=== PATIENT | male | born 1935 | race Caucasian/White ===

== ENCOUNTER → 2016-07-12 | Outpatient (CLI) | payer MEDICARE ==
[~2016-07-12] MED LIST: ALPR.5 PO; CALC625 PO; CALTTAB5 PO; COLA100C PO; FISH120014 PO; LORTA5 PO; METF-324 PO; METF500T PO; TAB-TAB PO; VESI10TA PO; VESI10TA4 PO; VITA20002 PO
[2016-07-12 17:04] LABS: HEMOGLOBIN A1a 1.2 %; HEMOGLOBIN A1b 1.7 %; HEMOGLOBIN Ao 84.3 %; HEMOGLOBIN LA1C 2.5 %; HEMOGLOBIN P3 3.8 %
== END ==
LOC: PLAB 13:48
PROVIDERS: ATTEND Family Medicine
DX: E11.9 Type 2 diabetes mellitus without complications (principal); E53.8 Deficiency of other specified B group vitamins
CPT/HCPCS: 36415; 82607; 83036

== ENCOUNTER 2016-07-27 12:02 | Emergency (ER) | payer MEDICARE ==
[~2016-07-27] VITALS: Ht 175.3 cm; Wt 77.0 kg
[~2016-07-27 12:02] MED LIST changes: -ALPR.5 PO; -METF500T PO; -VESI10TA PO
[2016-07-27 12:33] VITALS: BP 159/90; PULSE 88; RESP 17; TEMP 97.1; O2SAT 93
[2016-07-27] MEDS ORDERED: ALPR.5 PO (12:53)
[2016-07-27] MEDS ORDERED: VESI10TA PO (12:53)
[2016-07-27] MEDS ORDERED: METF500T PO (12:53)
--- NOTE | 2016-07-27 13:25 | RADHPO ---
EXAM DATE/TIME: 07/27/2016 12:53 [place] COMPARISON: No previous studies available for comparison. INDICATIONS : Trauma. Fell and hit forehead. Forehead lacerations. RADIATION DOSE: 62.43 CTDIvol (mGy) MEDICAL HISTORY : Diabetes mellitus type 2. Carcinoma, prostate. SURGICAL HISTORY : Cholecystectomy. ENCOUNTER: Initial ACUITY: 1 day PAIN SCALE: 0/10 LOCATION: frontal TECHNIQUE: Multiple contiguous axial images were obtained of the head. Using automated exposure control and adj ustment of the mA and/or kV according to patient size, radiation dose was kept as low as reasonably a chievable to obtain optimal diagnostic quality images. FINDINGS: CEREBRUM: The ventricles are normal for age. Age-appropriate atrophy No evidence of midline shift, mass lesion, hemorrhage or acute infarction. No extra-axial fluid collections are seen. POSTERIOR FOSSA: The cerebellum and brainstem are intact. The 4th ventricle is midline. The cerebellopontine angle i s unremarkable. EXTRACRANIAL: The visualized portion of the orbits is intact. SKULL: The calvaria is intact. No evidence of skull fracture. Facial laceration abrasion over fourth head r egion CONCLUSION: Intact calvarium and normal intracranially for age with no acute problem. Frontal superficial lacerat ion abrasion soft tissues Jeremy Murphy MD on July 27, 2016 at 13:22 Board Certified Radiologist. This report was verified electronically.
--- NOTE | 2016-07-27 13:26 | PD ---
HPI Chief Complaint: Head Injury Time Seen by Provider: 13:23 Travel History International Travel<30 days: No Contact w/Intl Traveler<30days: No Traveled to known affect area: No History of Present Illness HPI 80-year-old male presents to the emergency room for evaluation of 2 head lacerations after trip and fall last night. Patient tripped while trying to get into bed itself reports striking his head on the cabinet. He fell to the ground but was able to get up immediately afterwards. Denies any other extremity or hip pain. His daughter applied a dressing to get the wound to stop bleeding and helped back in bed to sleep. When he woke up this morning, she realized how deep the lacerations were and thought he needed stitches. He denies loss of consciousness, altered mental status, confusion, visual changes, nausea, vomiting, and headache. Patient did have a mild headache this morning for which he received 400 mg ibuprofen. Last tetanus was likely within 5 days. He is not on blood thinners. PFSH Past Medical History Cancer: Yes (PROSTATE) Cardiovascular Problems: No Diabetes: Yes Patient Takes Glucophage: Yes Endocrine: No Gastrointestinal Disorders: Yes (reflux) Genitourinary: Yes (hx of prostate cancer) Hepatitis: No Hiatal Hernia: No Immune Disorder: No Musculoskeletal: No Neurologic: No Psychiatric: No Reproductive: No Respiratory: Yes (poss pneumonia at one time) Thyroid Disease: No Tetanus Vaccination: > 5 Years Influenza Vaccination: Yes Past Surgical History Abdominal Surgery: Yes (GALLBLADDER REMOVED) AICD: No Joint Replacement: No Pacemaker: No Other Surgery: Yes (COLON RESECTION) Social History Alcohol Use: Yes (~4 DRINKS DAILY) Tobacco Use: No Substance Use: No Allergies-Medications (Allergen,Severity, Reaction): Coded Allergies: Lisinopril (Verified Adverse Reaction, Severe, swelling to mouth, 07/27/16) Reported Meds & Prescriptions Reported Meds & Active Scripts Active Reported Xanax (Alprazolam) 0.5 Mg Tab 0.5 Mg PO HS PRN Vesicare (Solifenacin) 10 Mg Tab 10 Mg PO DAILY Metformin (Metformin HCl) 500 Mg Tab 500 Mg PO DAILY With a meal Review of Systems Except as stated in HPI: all other systems reviewed are Neg Physical Exam Narrative GENERAL: Well-nourished, well-developed male in no acute distress. Afebrile. Ambulatory. SKIN: Warm and dry. HEAD: Normocephalic. EYES: No scleral icterus. No injection or drainage. EARS: Bilateral pinnae and external canals appear within normal limits. Bilateral tympanic membranes without erythema, dullness or perforation. No hemotympanum. NECK: Supple, trachea midline. No JVD or lymphadenopathy. CARDIOVASCULAR: Regular rate and rhythm without murmurs, gallops, or rubs. RESPIRATORY: Breath sounds equal bilaterally. No accessory muscle use. NEUROLOGICAL: Awake and alert. Cranial nerves II through XII intact. Motor and sensory grossly within normal limits. Five out of 5 muscle strength in all muscle groups. Normal speech. Data Data Last Documented VS Vital Signs Date Time Temp Pulse Resp B/P Pulse Ox O2 Delivery O2 Flow Rate FiO2 07/27/16 12:52 Room Air 07/27/16 12:33 97.1 88 17 159/[address] Brain W/O Iv Contrast(Rout) (07/27/16 ) Lidocai-Epi 1%-1:100,000 Inj (Xylocaine- (07/27/16 13:45) MDM Medical Decision Making Medical Screen Exam Complete: Yes Emergency Medical Condition: Yes Medical Record Reviewed: Yes Differential Diagnosis Laceration versus concussion versus intracranial hemorrhage Narrative Course 80-year-old female presents to the emergency room for evaluation of lacerations to forehead after trip and fall last night. Patient tripped and struck his head against the cabinet. There is no loss of consciousness or syncope. No focal neurological deficits. He is not on blood thinners. Denies headache, retrograde amnesia, nausea, and vomiting. CT is negative. Physical exam reveals 2 3 cm lacerations, one vertical and one horizontal on the mid forehead. Hemostasis controlled. Wounds were repaired, see procedure note for details. Patient discharged with wound care instructions and told to follow up with a primary care physician or return for worsening symptoms. He understands and agrees to plan. Procedures Procedure Narrative LACERATION LOCATION: Forehead; vertical LENGTH: 3 cm NUMBER OF STITCHES/ALEJANDRA: 6 simple interrupted REPAIR: The area of the laceration was prepped with Betadine and sterilely draped. The laceration was infiltrated with 1% lidocaine with epinephrine. The wound was copiously irrigated and explored without evidence of foreign body , tendon injury or neurovascular injury. The wound was closed using 6-0 Prolene. This was a single layer repair. A sterile dressing was applied. The patient was advised to keep the dressing clean and dry. Patient tolerated the procedure well. LACERATION LOCATION: Forehead; horizontal LENGTH: 3 cm NUMBER OF STITCHES/ALEJANDRA: 5 simple interrupted REPAIR: The area of the laceration was prepped with Betadine and sterilely draped. The laceration was infiltrated with 1% lidocaine with epinephrine. The wound was copiously irrigated and explored without evidence of foreign body , tendon injury or neurovascular injury. The wound was closed using 6-0 Prolene. This was a single layer repair. A sterile dressing was applied. The patient was advised to keep the dressing clean and dry. Patient tolerated the procedure well. Diagnosis Primary Impression: Laceration of forehead without complication Qualified Code: S01.81XA - Laceration of forehead without complication, initial encounter Referrals: Primary Care Physician Patient Instructions: General Instructions, Laceration (ED) Additional Instructions: Rest and drink plenty of fluids. Keep wound clean and dry. Wash daily with soap and water. Apply triple antibiotic ointment daily. Sutures out in 5-7 days. Take Tylenol as directed, as needed for pain. Follow-up with a primary care physician. Return to the emergency room for worsening symptoms. Disposition: 01 DISCHARGE HOME Condition: Stable Tasha Knapp Jul 27, 2016 13:26
[2016-07-27] MEDS ORDERED: LIDOCAINE 1%/EPINEPHrine 1:100,000 SOLN 20 ML VIAL INFIL ONE (13:30)
[2016-07-27] MEDS ORDERED: LIDOCAINE 1%/EPINEPHrine 1:100,000 SOLN 30 ML VIAL INFIL ONE (13:45)
== END 2016-07-27 14:35 | disposition home or self-care (01) ==
LOC: PHEFT 12:02
DX: S01.81XA Laceration without foreign body of other part of head, initial encounter (principal); W01.190A Fall on same level from slipping, tripping and stumbling with subsequent striking against furniture, initial encounter
CPT/HCPCS: 12014; 70450

== ENCOUNTER → 2016-10-03 | Outpatient (CLI) | payer MEDICARE ==
[~2016-10-03] MED LIST changes: +ALPR.5 PO; -CALC625 PO; -CALTTAB5 PO; -COLA100C PO; -FISH120014 PO; -LORTA5 PO; -METF-324 PO; +METF500T PO; -TAB-TAB PO; +VESI10TA PO; -VESI10TA4 PO; -VITA20002 PO
[2016-10-03 13:30] LABS: AUTOMATED NEUTROPHIL # 2.1 TH/MM3 (1.8-7.7); BASOPHIL % 0.5 % (0.0-2.0); EOSINOPHIL # 0.2 TH/MM3 (0-0.4); EOSINOPHIL % 4.1 % (0.0-4.0); HEMATOCRIT 41.9 % (39.0-51.0); HEMO FLAGS DIFF FINAL; LYMPH % 34.2 % (9.0-44.0); LYMPHOCYTE # 1.5 TH/MM3 (1.0-4.8); MEAN CELL VOLUME 96.2 FL (80.0-100.0); MEAN CORPUSCULAR HEMOGLOBIN 32.7 PG (27.0-34.0); MONO % 13.5 % (0.0-8.0); NEUT % 47.7 % (16.0-70.0); PLATELET COUNT 180 TH/MM3 (150-450); RED BLOOD COUNT 4.36 MIL/MM3 (4.50-5.90); RED CELL DISTRIBUTION WIDTH 13.4 % (11.6-17.2); WHITE BLOOD COUNT 4.3 TH/MM3 (4.0-11.0)
[2016-10-03 14:03] LABS: ANION GAP 9 MEQ/L (5-15); AST (GOT) 19 U/L (15-37); BICARBONATE 27.1 MEQ/L (21.0-32.0); BLOOD UREA NITROGEN 8 MG/DL (7-18); CHLORIDE 103 MEQ/L (98-107); POTASSIUM 3.9 MEQ/L (3.5-5.1); SODIUM (NA) 139 MEQ/L (136-145)
[2016-10-03 14:32] LABS: ALKALINE PHOSPHATASE 57 U/L (45-117); ALT (GPT) 16 U/L (12-78); GLOMERULAR FILTRATION RATE 69 ML/MIN (>89); TOTAL BILIRUBIN ADULT 0.6 MG/DL (0.2-1.0)
[2016-10-03 17:01] LABS: HEMOGLOBIN A1b 1.7 %; HEMOGLOBIN Ao 84.8 %; HEMOGLOBIN P3 3.7 %
== END ==
LOC: PLAB 09:42
PROVIDERS: ATTEND Urology
DX: E11.9 Type 2 diabetes mellitus without complications (principal); E53.8 Deficiency of other specified B group vitamins; Z85.46 Personal history of malignant neoplasm of prostate
CPT/HCPCS: 36415; 80053; 82607; 82746; 83036; 83921; 84153; 85025

== ENCOUNTER → 2017-04-18 | Outpatient (CLI) | payer MEDICARE ==
[2017-04-18 13:59] LABS: BASOPHIL % 0.4 % (0.0-2.0); EOSINOPHIL # 0.2 TH/MM3 (0-0.4); EOSINOPHIL % 3.7 % (0.0-4.0); HEMATOCRIT 43.4 % (39.0-51.0); HEMO FLAGS DIFF FINAL; LYMPH % 36.2 % (9.0-44.0); LYMPHOCYTE # 1.5 TH/MM3 (1.0-4.8); MEAN CELL VOLUME 101.5 FL (80.0-100.0); MEAN CORPUSCULAR HEMOGLOBIN 33.5 PG (27.0-34.0); MONO % 11.8 % (0.0-8.0); NEUT % 47.9 % (16.0-70.0); PLATELET COUNT 117 TH/MM3 (150-450); RED BLOOD COUNT 4.28 MIL/MM3 (4.50-5.90); RED CELL DISTRIBUTION WIDTH 13.9 % (11.6-17.2); WHITE BLOOD COUNT 4.2 TH/MM3 (4.0-11.0)
[2017-04-18 14:31] LABS: ANION GAP 7 MEQ/L (5-15); AST (GOT) 30 U/L (15-37); BICARBONATE 27.8 MEQ/L (21.0-32.0); BLOOD UREA NITROGEN 11 MG/DL (7-18); CHLORIDE 106 MEQ/L (98-107); GLOMERULAR FILTRATION RATE 65 ML/MIN (>89); POTASSIUM 3.6 MEQ/L (3.5-5.1); SODIUM (NA) 141 MEQ/L (136-145)
[2017-04-18 15:01] LABS: ALKALINE PHOSPHATASE 64 U/L (45-117); ALT (GPT) 22 U/L (12-78); GLUCOSE,FASTING 86 MG/DL (74-99); HDL CHOLESTEROL 78.9 MG/DL (40.0-60.0); LDL CHOLESTEROL 50 MG/DL (0-99); TOTAL BILIRUBIN ADULT 0.6 MG/DL (0.2-1.0)
[2017-04-18 16:52] LABS: HEMOGLOBIN A1a 1.1 %; HEMOGLOBIN A1b 1.7 %; HEMOGLOBIN Ao 84.5 %; HEMOGLOBIN F 0.5 %; HEMOGLOBIN LA1C 2.1 %; HEMOGLOBIN P3 3.7 %
== END ==
LOC: PLAB 09:27
PROVIDERS: ATTEND Family Medicine
DX: R53.1 Weakness (principal); E11.9 Type 2 diabetes mellitus without complications; I10 Essential (primary) hypertension; R53.83 Other fatigue; E78.2 Mixed hyperlipidemia; Z85.46 Personal history of malignant neoplasm of prostate
CPT/HCPCS: 36415; 80053; 80061; 82607; 83036; 84153; 85025

== ENCOUNTER → 2017-08-13 | Outpatient (CLI) | payer MEDICARE ==
[~2017-08-13] MED LIST changes: -VESI10TA PO; +VESI10TA2 PO
[2017-08-13 17:25] LABS: AUTOMATED NEUTROPHIL # 3.4 TH/MM3 (1.8-7.7); BASOPHIL % 0.5 % (0.0-2.0); EOSINOPHIL # 0.2 TH/MM3 (0-0.4); EOSINOPHIL % 3.5 % (0.0-4.0); HEMATOCRIT 43.9 % (39.0-51.0); HEMOGLOBIN 15.4 GM/DL (13.0-17.0); LYMPH % 25.6 % (9.0-44.0); LYMPHOCYTE # 1.5 TH/MM3 (1.0-4.8); MEAN CELL VOLUME 100.2 FL (80.0-100.0); MEAN CORPUSCULAR HEMOGLOBIN 35.1 PG (27.0-34.0); MONO % 11.4 % (0.0-8.0); MONOCYTE # 0.6 TH/MM3 (0-0.9); PLATELET COUNT 168 TH/MM3 (150-450); RED BLOOD COUNT 4.38 MIL/MM3 (4.50-5.90); RED CELL DISTRIBUTION WIDTH 13.8 % (11.6-17.2); WHITE BLOOD COUNT 5.7 TH/MM3 (4.0-11.0)
[2017-08-13 17:45] LABS: ALBUMIN 3.7 GM/DL (3.4-5.0); AST (GOT) 21 U/L (15-37); BICARBONATE 28.6 MEQ/L (21.0-32.0); BLOOD UREA NITROGEN 14 MG/DL (7-18); CALCIUM 9.3 MG/DL (8.5-10.1); CHLORIDE 101 MEQ/L (98-107); CREATININE 1.14 MG/DL (0.60-1.30); GLOMERULAR FILTRATION RATE 62 ML/MIN (>89); GLUCOSE,RANDOM 127 MG/DL (74-106); SODIUM (NA) 138 MEQ/L (136-145)
[2017-08-13 17:46] LABS: ALT (GPT) 16 U/L (12-78)
[2017-08-13 17:48] LABS: ALKALINE PHOSPHATASE 68 U/L (45-117); TOTAL BILIRUBIN ADULT 0.6 MG/DL (0.2-1.0); TOTAL PROTEIN 7.4 GM/DL (6.4-8.2)
[2017-08-13 20:08] LABS: HEMOGLOBIN A1C 5.9 % (4.3-6.0)
== END ==
LOC: PLAB 15:46
PROVIDERS: ATTEND Family Medicine
DX: R09.02 Hypoxemia (principal); E11.9 Type 2 diabetes mellitus without complications
CPT/HCPCS: 36415; 80053; 83036; 85025

== ENCOUNTER → 2017-09-19 | Outpatient (CLI) | payer MEDICARE ==
[2017-09-19 18:43] LABS: RHEUMATOID FACTOR SCREEN NEGATIVE (NEGATIVE)
== END ==
LOC: PLAB 12:56
PROVIDERS: ATTEND Family Medicine
DX: R09.02 Hypoxemia (principal)
CPT/HCPCS: 36415; 85652; 86038; 86140; 86430

== ENCOUNTER → 2017-10-25 | Outpatient (CLI) | payer MEDICARE | LOC: PLAB 11:05 | PROVIDERS: ATTEND Urology | DX: Z85.46 Personal history of malignant neoplasm of prostate (principal) | CPT/HCPCS: 36415; 84153 ==

== ENCOUNTER → 2017-11-14 | Outpatient (CLI) | DX: E11.9 Type 2 diabetes mellitus without complications (principal); K43.2 Incisional hernia without obstruction or gangrene; E78.2 Mixed hyperlipidemia; I10 Essential (primary) hypertension; R53.83 Other fatigue; E53.8 Deficiency of other specified B group vitamins ==

== ENCOUNTER 2018-05-22 14:49 | Inpatient (IN) ==
--- NOTE | 2018-05-22 15:33 | ED ---
HPI General Chief Complaint: Syncope Stated Complaint: Syncope Time Seen by Provider: 05/22/18 15:04 Source: patient and family Mode of arrival: EMS Limitations: no limitations History of Present Illness HPI narrative: Patient is an 82-year-old male presenting to the emergency department for evaluation after a witnessed syncopal episode. states that he was attempting to walk to the bathroom, he went to sit down on the toilet bowl and slumped over per her report. There was no head injury, she states that he was not responding for several seconds. Patient occasionally requires the use of a walker, approximately 10 days ago he had a fall that resulted in an L1 compression fracture. This was just discovered yesterday after an x-ray was performed by his primary doctor. Patient's states that he wears oxygen at night and that he recently qualified for oxygen during the day but he does not wear it. Patient reports feeling dizzy prior to the episode. He denied any chest pain, shortness of breath, headaches, visual changes. Symptom onset was sudden, symptoms resolved prior to presenting to the emergency department. MD complaint: Reports collapsed Onset (ago): minute(s) -: second(s) Prodromal symptoms: Reports lightheaded Witnessed: yes - by other Context: Reports during exertion and standing up Injuries sustained associated with event: Reports none Current symptoms: Reports none Treatments prior to arrival: Reports none Related Data Home Medications Medication Instructions Recorded Confirmed alprazolam 0.5 mg PO HS 05/22/18 05/22/18 metformin 500 mg PO DAILY 05/22/18 05/22/18 mirabegron [Myrbetriq] 25 mg PO DAILY 05/22/18 05/22/18 Allergies Allergy/AdvReac Type Severity Reaction Status Date / Time lisinopril AdvReac Severe swelling Verified 05/22/18 15:07 to mouth Review of Systems ROS: all other systems reviewed are negative [facility] Medical History Medical History Compression fracture of L1 lumbar vertebra (Acute) Diabetes (Acute) Insomnia (Acute) Surgical History Surgical History History of cholecystectomy (Acute) Social History Social History Substance History: No History of Abuse Smoking Status: Former smoker How Often Do You Have a Drink Containing Alcohol: 2 to 3 times a week Recent Travel in [facility] within the Last 8 Weeks: No Recent Out of Country Travel within the Last 8 Weeks: No Immunization History Tetanus Immunization: Unsure Exam Narrative Exam Narrative: GENERAL: Well-developed, well-nourished, alert elderly male. Presenting in no acute distress. SKIN: Focused skin assessment warm/dry. HEAD: Atraumatic. Normocephalic. EYES: Pupils equal and round. No scleral icterus. No injection or drainage. ENT: No nasal bleeding or discharge. Mucous membranes pink and moist. NECK: Trachea midline. No JVD. CARDIOVASCULAR: Regular rate and rhythm. No murmur appreciated. RESPIRATORY: No accessory muscle use. Clear to auscultation. Breath sounds equal bilaterally. GASTROINTESTINAL: Abdomen soft, non-tender, nondistended. Hepatic and splenic margins not palpable. MUSCULOSKELETAL: No obvious deformities. No clubbing. No cyanosis. No edema. NEUROLOGICAL: Awake and alert. No obvious cranial nerve deficits. Motor grossly within normal limits. Normal speech. PSYCHIATRIC: Appropriate mood and affect; insight and judgment normal. Course Initial Documented Vital Signs Pulse Oximetry 89 L 05/22/18 15:02 Last Documented Vital Signs Temperature 97.4 F L 05/22/18 15:09 Pulse Rate 61 05/22/18 17:07 Respiratory Rate 18 05/22/18 17:15 Blood Pressure 162/92 H 05/22/18 17:15 Pulse Oximetry 96 05/22/18 17:15 Medical Decision Making GRISELDA Attestation GRISELDA supervised visit: Yes Attestation: I, Dr. Young, have reviewed the advance practice practitioner's documentation and am in agreement, met with the patient face to face, made the diagnosis, and the medical decision making was done by me. *My assessment and Findings: Patient is an 82-year-old male who presents to the emergency room with his for evaluation of a syncopal episode. Patient reports that he was recently diagnosed with an L1 compression fracture after he fell 1 week ago. Patient reports that with his pain, he has not been able to eat like his normal self, he has been trying to drink Ensure shakes. Patient reports that today, he tried to use the bathroom, reports that he needed to the toilet and passed out for a few seconds. Patient did not have a bowel movement, did not have any passage of urine prior to this syncopal episode. who is at bedside reported that this lasted for only a few minutes and he was able to come to. Patient at this time denies any headache or dizziness, denies any chest pain or shortness of breath. A syncope workup was initiated. MDM Narrative Medical decision making narrative: Patient presented with his for evaluation after syncopal episode. Patient's vital signs are stable, his O2 sat on room air is 91-92%, when EMS arrived on scene patient's pulse ox was 88% . Orthostatic vital signs are negative. Labs and imaging ordered and pending. Initial EKG reviewed by my attending physician. Labs reviewed, sodium 123, this is acute when compared to prior less than a month ago which was 135. CT the brain shows no acute findings. Chest x-ray with no acute disease Patient was given 1 L of IV fluids, discussed with Dr. Howell who accepted admission. Admit orders placed. Patient advised on clinical findings and plan of care. Medical Screen Exam Complete: Yes Emergency Medical Condition: Yes Differential Diagnosis Differential Diagnosis: Metabolic abnormality versus hypoxia versus arrhythmia versus vasovagal versus other Medical Records Medical records reviewed: Yes I reviewed the patient's medical records. Lab Data Lab results reviewed: Yes I reviewed the patient's lab results. Result diagrams: 05/22/18 15:20 05/22/18 15:20 Lab Results 05/22/18 05/22/18 Range/Units 15:20 15:20 WBC 6.9 (4.0-11.0) th/mm3 RBC 4.20 L (4.50-5.90) mil/mm3 Hgb 14.7 (13.0-17.0) gm/dL Hct 41.9 (39.0-51.0) % MCV 99.8 (80.0-100.0) fL MCH 35.0 H (27.0-34.0) pg MCHC 35.1 (32.0-36.0) % RDW 13.4 (11.6-17.2) % Plt Count 191 (150-450) th/mm3 MPV 9.2 (7.0-11.0) fL Neut % (Auto) 63.1 (16.0-70.0) % Lymph % (Auto) 19.1 (9.0-44.0) % [place] % (Auto) 13.9 H (0.0-8.0) % Eos % (Auto) 3.5 (0.0-4.0) % Baso % (Auto) 0.4 (0.0-2.0) % Neut # (Auto) 4.4 (1.8-7.7) th/mm3 Lymph # (Auto) 1.3 (1.0-4.8) th/mm3 [place] # (Auto) 1.0 H (0.0-0.9) th/mm3 Eos # (Auto) 0.2 (0.0-0.4) th/mm3 Baso # (Auto) 0.0 (0.0-0.2) th/mm3 WBC Differential . Differential Comment Auto diff final Sodium 123 L* (136-145) meq/L Potassium 4.1 (3.5-5.1) meq/L Chloride 89 L (98-107) meq/L Carbon Dioxide 24.2 (21.0-32.0) meq/L Anion Gap 10 (5-15) meq/L BUN 15 (7-18) mg/dL Creatinine 1.18 (0.60-1.30) mg/dL Estimated GFR 59 L (>89) mL/min Random Glucose 127 H (74-106) mg/dL Calcium 9.0 (8.5-10.1) mg/dL Total Bilirubin 0.6 (0.2-1.0) mg/dL AST 35 (15-37) U/L ALT 15 (12-78) U/L Alkaline Phosphatase 63 (45-117) U/L Troponin I Less than 0.02 L (0.02-0.05) ng/mL Total Protein 6.8 (6.4-8.2) g/dL Albumin 3.3 L (3.4-5.0) g/dL Imaging Data Radiologist's impression: Head CT 05/22/18 15:14 CONCLUSION: 1. No acute intracranial abnormality. 2. Atrophy and chronic white matter changes are again noted. . Chest X-Ray 05/22/18 15:15 CONCLUSION: Hyperexpanded and scarred lungs similar to before. No acute infiltrate seen. Discharge Plan Discharge Disposition Patient Disposition: 30 Still Patient Discharge Condition Condition: Fair Discharge Details Diagnosis: Syncope and collapse, Hyponatremia Physicians Team ED Provider: Patty Young ED Midlevel Provider: Paula Muniz Primary Care Provider: Winnie Moulton Rxs /Orders / Referrals /Forms Prescriptions: No Action metformin 500 mg Tablet 500 mg PO DAILY RF: 0 alprazolam 0.5 mg Tablet 0.5 mg PO HS RF: 0 mirabegron [Myrbetriq] 25 mg Tablet Extended Release 24 Hr 25 mg PO DAILY RF: 0 Status ED Status: Admitted Patient
--- NOTE | 2018-05-22 15:48 | XR ---
EXAM DATE: 05/22/2018 3:33 PM EST AGE/SEX: 82 years / Male INDICATIONS: Dyspnea. CLINICAL DATA: This is the patient's initial encounter. Patient reports that signs and symptoms have been present for 1 day and indicates a pain score of 0/10. MEDICAL/SURGICAL HISTORY: . Diabetes mellitus type 2. Carcinoma, prostate. . Cholecystectomy. COMPARISON: [facility], CT CHEST W/O CONTRAST, 09/25/2017. . FINDINGS: Hyperexpanded lungs with basilar predominant scarring again noted, generally similar to the prior CT. No definite acute infiltrate seen. No large effusion. No pneumothorax. Heart size stable, upper limits of normal. Tortuous and atherosclerotic aorta again seen. CONCLUSION: Hyperexpanded and scarred lungs similar to before. No acute infiltrate seen. Electronically signed by: Joaquin Storey MD 05/22/2018 3:47 PM EST
[2018-05-22 15:51] LABS: Baso % (Auto) 0.4 % (0.0-2.0); Eos # (Auto) 0.2 th/mm3 (0.0-0.4); Eos % (Auto) 3.5 % (0.0-4.0); Hematocrit 41.9 % (39.0-51.0); Hemoglobin 14.7 gm/dL (13.0-17.0); Lymph # (Auto) 1.3 th/mm3 (1.0-4.8); Lymph % (Auto) 19.1 % (9.0-44.0); Mean Corpuscular HGB Conc 35.1 % (32.0-36.0); Mean Corpuscular Volume 99.8 fL (80.0-100.0); Mean Platelet Volume 9.2 fL (7.0-11.0); Mono % (Auto) 13.9 % (0.0-8.0); Neut # (Auto) 4.4 th/mm3 (1.8-7.7); Neut % (Auto) 63.1 % (16.0-70.0); Platelet Count 191 th/mm3 (150-450); Red Cell Distribution Width 13.4 % (11.6-17.2); White Blood Count 6.9 th/mm3 (4.0-11.0)
--- NOTE | 2018-05-22 16:36 | CT ---
EXAM DATE: 05/22/2018 4:29 PM EST AGE/SEX: 82 years / Male INDICATIONS: Syncope today. CLINICAL DATA: This is the patient's initial encounter. Patient reports that signs and symptoms have been present for 1 day and indicates a pain score of 0/10. MEDICAL/SURGICAL HISTORY: Diabetes. Cholecystectomy. RADIATION DOSE: 56.35 CTDI (mGy) COMPARISON: [facility], CT BRAIN W/O CONTRAST, 07/27/2016. . TECHNIQUE: CT of the head without contrast. Using automated exposure control and adjustment of the mA and/or kV according to patient size, radiation dose was kept as low as reasonably achievable to ob tain optimal diagnostic quality images. DICOM format image data is available electronically for revi ew and comparison. FINDINGS: Cerebrum: The ventricles are normal for age. No evidence of midline shift, mass lesion, hemorrhage or acute infarction. No extraaxial fluid collections are seen. Atrophy and chronic low-attenuation i n the periventricular white matter again noted. Posterior Fossa: The cerebellum and brainstem are intact. The 4th ventricle is midline. The cerebe llopontine angle is unremarkable. Extracranial: The visualized portion of the orbits is intact. Skull: The calvaria is intact. No evidence of skull fracture. CONCLUSION: 1. No acute intracranial abnormality. 2. Atrophy and chronic white matter changes are again noted. . Electronically signed by: Joaquin Storey MD 05/22/2018 4:34 PM EST
[2018-05-22 17:06] LABS: Alanine Aminotransferase 15 U/L (12-78); Albumin 3.3 g/dL (3.4-5.0); Alkaline Phosphatase 63 U/L (45-117); Anion Gap 10 meq/L (5-15); Aspartate Aminotransferase 35 U/L (15-37); Blood Urea Nitrogen 15 mg/dL (7-18); Carbon Dioxide 24.2 meq/L (21.0-32.0); Chloride 89 meq/L (98-107); Glomerular Filtration Rate 59 mL/min (>89); Glucose,Random 127 mg/dL (74-106); Total Protein 6.8 g/dL (6.4-8.2)
[2018-05-22 17:07] LABS: Potassium 4.1 meq/L (3.5-5.1)
[2018-05-22 17:09] LABS: Sodium 123 meq/L (136-145)
[2018-05-22] MEDS ORDERED: Sod Chloride 0.9% Inj 1,000 ML IV.SIG SCH (17:15)
[2018-05-22] MEDS ORDERED: Bisacodyl 10 MG Supp RECTAL PRN (18:04)
[2018-05-22] MEDS ORDERED: Acetaminophen 325 MG Tablet PO PRN (18:04)
--- NOTE | 2018-05-22 18:16 | P.HP ---
History of Present Illness Service: Hospitalist Primary Care Physician: Winnie Moulton MD Chief Complaint: Almost passed out. History of Present Illness: Mr. Keller is an 82 year old male is with a history of prostate cancer and diabetes mellitus with a recent L1 compression fracture who presents to the ED on 05/22/2018 due to an episode of near syncope. Patient went to the toilet and as he sat, he slumped over but did not loose consciousness. Patient's subsequently called EMS and patient was brought to the ED. At the time of this interview, patient is doing much better per his at bedside. He was started on a new BPH medication, Mirabegron. Patient's does report that he has not been eating or drinking well in the recent few days. He does drink alcohol but has reduced alcohol in-take in recent days. No chest pain, shortness of breath, no fever/chills. No changes in bowel or bladder habits. Past medical history: Diabetes mellitus, L1 compression fracture, prostate cancer Past surgical history: Cholecystectomy Social history: Denies using tobacco. Drinks 2-3 drinks of whisky a day Family history: Sister from Lung cancer. Father had Alzheimer's. Inpatient Certification: I certify that the inpatient services were ordered in accordance with Medicare regulations governing the order. This includes certification that hospital inpatient services are reasonable and necessary and in the case of services not specified as inpatient-only under 42 CFR 419.22(n), that they are appropriately provided as inpatient services in accordance to with the 2-midnight benchmark under 43 CFR 412.3(e) Review of Systems All other systems reviewed negative except as stated in [facility] - History History Provided By: Patient, Family Member - Medical History Medical History: Medical History (Last Reviewed 05/22/18 @ 22:23 by Jeff Howell DO) Compression fracture of L1 lumbar vertebra Diabetes Insomnia - Surgical History Surgical History: Surgical History (Last Reviewed 05/22/18 @ 22:23 by Jeff Howell DO) History of cholecystectomy - Tobacco History Smoking Status: Former smoker - Alcohol History How Often Do You Have a Drink Containing Alcohol: 2 to 3 times a week - Substance Use History Substance History: No History of Abuse - Travel History Recent Travel in the [place] Within the Last 8 Weeks: No Recent Travel Out of the Country Within the Last 8 Weeks: No - Immunization History Tetanus Immunization: Unsure Medications and Allergies Active Medications: Active Medications Acetaminophen (Tylenol) 650 mg PO Q4H PRN PRN Reason: Headache, fever, pain 1-4 Al Hydroxide/Mg Hydroxide (Milk Of Magnesia Liq) 30 ml PO Q12H PRN PRN Reason: Mild Constipation Bisacodyl (Dulcolax Supp) 10 mg RECTAL DAILY PRN PRN Reason: SEVERE CONSITIPATION Sodium Chloride (Ns Inj) 1,000 mls @ 100 mls/hr IV.CONT .Q10H CHELE Stop: 05/24/18 18:14 Lactulose (Lactulose Liq) 30 ml PO DAILY PRN PRN Reason: SEVERE CONSITIPATION Ondansetron HCl (Zofran Inj) 4 mg IV.PUSH Q6H PRN PRN Reason: NAUSEA OR VOMITING Sennosides (Senokot) 17.2 mg PO Q12H PRN PRN Reason: Moderate Constipation Allergies Allergy/AdvReac Type Severity Reaction Status Date / Time lisinopril AdvReac Severe swelling Verified 05/22/18 21:52 to mouth Home Medications Medication Instructions Recorded Confirmed Type alprazolam 0.5 mg PO HS 05/22/18 05/22/18 History metformin 500 mg PO DAILY 05/22/18 05/22/18 History mirabegron [Myrbetriq] 25 mg PO DAILY 05/22/18 05/22/18 History Exam Vital signs: Vital Signs 05/22/18 15:02 05/22/18 15:09 05/22/18 17:07 Temperature 97.4 F L Pulse Rate 63 61 Respiratory Rate 16 Blood Pressure 173/91 H Pulse Oximetry 89 L 92 L 05/22/18 17:15 Temperature Pulse Rate Respiratory Rate 18 Blood Pressure 162/92 H Pulse Oximetry 96 Intake & Output 05/21/18 05/22/18 05/22/18 18:59 06:59 18:59 Weight 79.379 kg Narrative: GENERAL: This is a well-nourished, well-developed patient, in no apparent distress. SKIN: No rashes, ecchymoses or lesions. Warm and dry. HEAD: Atraumatic. Normocephalic. No temporal or scalp tenderness. EYES: Pupils equal round and reactive. No injection or drainage. ENT: Nose without bleeding, purulent drainage or septal hematoma. Airway patent. NECK: Trachea midline. No lymphadenopathy. Supple, nontender, no meningeal signs. CARDIOVASCULAR: Regular rate and rhythm without murmurs, gallops, or rubs. No JVD. RESPIRATORY: Clear to auscultation. Breath sounds equal bilaterally. No wheezes , rales, or rhonchi. GASTROINTESTINAL: Abdomen soft, non-tender, nondistended. No guarding. MUSCULOSKELETAL: Extremities without clubbing, cyanosis, or edema. NEUROLOGICAL: Awake and alert. Cranial nerves II through XII intact. No focal neurological deficits. Normal speech. Results - Labs CBC & Chem 7: 05/22/18 15:20 05/22/18 15:20 Labs: Laboratory Results - last 24 hr 05/22/18 05/22/18 15:20 15:20 WBC 6.9 RBC 4.20 L Hgb 14.7 Hct 41.9 MCV 99.8 MCH 35.0 H MCHC 35.1 RDW 13.4 Plt Count 191 MPV 9.2 Neut % (Auto) 63.1 Lymph % (Auto) 19.1 [place] % (Auto) 13.9 H Eos % (Auto) 3.5 Baso % (Auto) 0.4 Neut # (Auto) 4.4 Lymph # (Auto) 1.3 [place] # (Auto) 1.0 H Eos # (Auto) 0.2 Baso # (Auto) 0.0 WBC Differential . Differential Comment Auto diff final Sodium 123 L* Potassium 4.1 Chloride 89 L Carbon Dioxide 24.2 Anion Gap 10 BUN 15 Creatinine 1.18 Estimated GFR 59 L Random Glucose 127 H Calcium 9.0 Total Bilirubin 0.6 AST 35 ALT 15 Alkaline Phosphatase 63 Troponin I Less than 0.02 L Total Protein 6.8 Albumin 3.3 L - Imaging Impressions Head CT 05/22/18 15:14 CONCLUSION: 1. No acute intracranial abnormality. 2. Atrophy and chronic white matter changes are again noted. . Chest X-Ray 05/22/18 15:15 CONCLUSION: Hyperexpanded and scarred lungs similar to before. No acute infiltrate seen. Caprini VTE Risk Assessment Caprini VTE Risk Assessment: No/Low Risk (score <= 1) Caprini Risk Assessment Model: Point Value = 1 Point Value = 2 Point Value = 3 Point Value = 5 Age 41-60 Minor surgery BMI > 25 kg/m2 Swollen legs Varicose veins or History of unexplained or recurrent spontaneous Oral contraceptives or hormone replacement Sepsis (< 1 month) Serious lung disease, including pneumonia (< 1 month) Abnormal pulmonary function Acute myocardial infarction Congestive heart failure (< 1 month) History of inflammatory bowel disease Medical patient at bed rest Age 61-74 Arthroscopic surgery Major open surgery (> 45 min) Laparoscopic surgery (> 45 min) Malignancy Confined to bed (> 72 hours) Immobilizing plaster cast Central venous access Age >= 75 History of VTE Family history of VTE Factor V Leiden Prothrombin [id number] Lupus anticoagulant Anticardiolipin antibodies Elevated serum homocysteine Heparin-induced thrombocytopenia Other congenital or acquired thrombophilia Stroke (< 1 month) Elective arthroplasty Hip, pelvis, or leg fracture Acute spinal cord injury (< 1 month) Prophylaxis Regimen: Total Risk Factor Score Risk Level Prophylaxis Regimen 0-1 Low Early ambulation 2 Moderate Order ONE of the following: *Sequential Compression Device (SCD) *Heparin 5000 units SQ BID 3-4 Higher Order ONE of the following medications: *Heparin 5000 units SQ TID *Enoxaparin/Lovenox 40 mg SQ daily (WT < 150 kg, CrCl > 30 mL/min) *Enoxaparin/Lovenox 30 mg SQ daily (WT < 150 kg, CrCl > 10-29 mL/min) *Enoxaparin/Lovenox 30 mg SQ BID (WT < 150 kg, CrCl > 30 mL/min) AND/OR *Sequential Compression Device (SCD) 5 or more Highest Order ONE of the following medications: *Heparin 5000 units SQ TID (Preferred with Epidurals) *Enoxaparin/Lovenox 40 mg SQ daily (WT < 150 kg, CrCl > 30 mL/min) *Enoxaparin/Lovenox 30 mg SQ daily (WT < 150 kg, CrCl > 10-29 mL/min) *Enoxaparin/Lovenox 30 mg SQ BID (WT < 150 kg, CrCl > 30 mL/min) AND *Sequential Compression Device (SCD) Assessment and Plan - Plan Mr. Keller is a pleasant 82 year old male with a history of prostate cancer, recent L1 fracture, diabetes mellitus who presented to the ED after an episode of near syncope. Near syncope -Possibly due to hypovolemia which is due to poor oral intake. -Will keep patient on NS. -Will check Orthostatics. Hyponatremia - Na 123 on admission. About a month ago it was 135. -Likely due to hypovolemia -Continue NS infusion. Check Urine Osm and Urine sodium. -Will also order AM cortisol and AM labs. Check Sodium at 10pm Diabetes mellitus -Glucose 127. Will keep him on sliding scale insulin. -If needed, consider Levemir. Goal BG 140-180. BPH - Mirabegron was started about a week ago. I don't think this is the reason for hyponatremia. Recent L1 compression fracture - Probably conservative management, PT. Full code. SCDs.
[2018-05-22] MEDS: Sod Chloride 0.9% Inj 1,000 ML IV.CONT SCH (18:37)
[2018-05-22 21:36] LABS: Bilirubin,Urine Negative (Negative); Clarity,Urine Clear (Clear); Color,Urine Yellow (Yellw/Straw); Glucose,Urine (UA) Negative (Negative); Hyaline Casts,Urine 3 /lpf (0-3); Leukocyte Esterase,Urine Negative (Negative); Mucus,Urine Few /lpf (Occasional); Nitrite,Urine Negative (Negative); Squamous Epithelial Cell,Urine <1 /hpf (0-5)
[2018-05-22] MEDS ORDERED: Dextrose 50% in Water 50 ML Vial IV.PUSH PRN (21:44)
[2018-05-23 00:16] LABS: Calcium 8.6 mg/dL (8.5-10.1); Carbon Dioxide 25.7 meq/L (21.0-32.0); Potassium 4.3 meq/L (3.5-5.1)
[2018-05-23] MEDS: Insulin NovoLOG Aspart Correctional Sugar Inj SQ SCH ×4 (08:54→21:02)
[2018-05-23] MEDS: Sod Chloride 0.9% Inj 1,000 ML IV.CONT SCH ×2 (08:56→14:23)
[2018-05-23] MEDS ORDERED: Influenza (Quadrivalent) Vaccine 0.5 ML Syringe IM ONE (09:00)
[2018-05-23 10:34] LABS: Calcium 8.6 mg/dL (8.5-10.1); Carbon Dioxide 23.4 meq/L (21.0-32.0); Potassium 3.9 meq/L (3.5-5.1)
--- NOTE | 2018-05-23 13:43 | P.PN ---
Subjective Interval history: Follow-up for near syncope as well as hyponatremia. Patient is currently doing well. Resting in bed. He reports doing well with physical therapy. Denies any chest pain, shortness of breath, fever or chills. Denies any dizziness or lightheadedness when he got up. However after discussing with physical therapy it appears that he is not very stable. Also nursing staff reports that he gets hypoxic without supplemental oxygenation. Physical Exam Vital signs: Vital Signs 05/22/18 15:02 05/22/18 15:09 05/22/18 17:07 Temperature 97.4 F L Pulse Rate 63 61 Respiratory Rate 16 Blood Pressure 173/91 H Pulse Oximetry 89 L 92 L 05/22/18 17:15 05/22/18 19:16 05/22/18 20:00 Temperature Pulse Rate 62 61 Respiratory Rate 18 18 Blood Pressure 162/92 H 167/93 H Pulse Oximetry 96 97 05/22/18 23:20 05/23/18 03:30 05/23/18 08:00 Temperature 97.7 F 97.6 F 97.5 F L Pulse Rate 62 59 L 74 Respiratory Rate 18 18 17 Blood Pressure 152/85 H 157/81 H 163/86 H Pulse Oximetry 94 L 96 91 L 05/23/18 12:00 Temperature 97.2 F L Pulse Rate 73 Respiratory Rate 18 Blood Pressure 168/85 H Pulse Oximetry 98 Intake & Output 05/22/18 05/23/18 05/23/18 18:59 06:59 18:59 Intake Total 1000 / 1000 360 / 360 1000 / 1000 Output Total 200 / 200 Balance 1000 / 1000 160 / 160 1000 / 1000 Weight 79.379 kg 77.9 kg Intake: IV 1000 / 1000 1000 / 1000 NS Inj 1,000 ML @ 100 mls/hr IV 1000 / 1000 .CONT .Q10H CHELE Rx#:[id number] NS Inj 1,000 ML @ 1000 mls/hr 1000 / 1000 IV.SIG BOLUS CHELE Rx#:[id number] Oral 360 / 360 Output: Urine 200 / 200 Other: # Voids 1 # Bowel Movements 0 Weight On Admission 77.9 kg Narrative: GENERAL: Alert, NAD. SKIN: Warm and dry. HEAD: Normocephalic. EYES: No scleral icterus. No injection or drainage. NECK: Supple, trachea midline. No JVD or lymphadenopathy. CARDIOVASCULAR: Regular rate and rhythm without murmurs, gallops, or rubs. RESPIRATORY: Breath sounds equal bilaterally. No accessory muscle use. GASTROINTESTINAL: Abdomen soft, non-tender, nondistended. MUSCULOSKELETAL: No cyanosis, or edema. BACK: Nontender without obvious deformity. No CVA tenderness. Results - Labs CBC & Chem 7: 05/22/18 15:20 05/23/18 09:56 Laboratory Results - last 24 hr 05/22/18 05/22/18 05/22/18 15:20 15:20 20:55 WBC 6.9 RBC 4.20 L Hgb 14.7 Hct 41.9 MCV 99.8 MCH 35.0 H MCHC 35.1 RDW 13.4 Plt Count 191 MPV 9.2 Neut % (Auto) 63.1 Lymph % (Auto) 19.1 [place] % (Auto) 13.9 H Eos % (Auto) 3.5 Baso % (Auto) 0.4 Neut # (Auto) 4.4 Lymph # (Auto) 1.3 [place] # (Auto) 1.0 H Eos # (Auto) 0.2 Baso # (Auto) 0.0 WBC Differential . Differential Comment Auto diff final Sodium 123 L* Potassium 4.1 Chloride 89 L Carbon Dioxide 24.2 Anion Gap 10 BUN 15 Creatinine 1.18 Estimated GFR 59 L POC Glucose Random Glucose 127 H Osmolality Calcium 9.0 Total Bilirubin 0.6 AST 35 ALT 15 Alkaline Phosphatase 63 Troponin I Less than 0.02 L Total Protein 6.8 Albumin 3.3 L TSH Cortisol Urine Color Yellow Urine Clarity Clear Urine pH 5.0 Ur Specific [place] 1.010 Urine Protein Negative Urine Glucose (UA) Negative Urine Ketones Trace H Urine Occult Blood Negative Urine Nitrate Negative Urine Bilirubin Negative Urine Urobilinogen Less than 2 Ur Leukocyte Esterase Negative Urine RBC 1 Urine WBC 1 Ur Squamous Epith Cells <1 Hyaline Casts 3 Urine Mucus Few H Micro UA Comment Culture not ind Ur Microscopic Review Not Reportable Urine Culture Comments Culture not ind Urine Osmolality Ur Random Sodium 05/22/18 05/22/18 05/22/18 20:55 20:55 23:23 WBC RBC Hgb Hct MCV MCH MCHC RDW Plt Count MPV Neut % (Auto) Lymph % (Auto) [place] % (Auto) Eos % (Auto) Baso % (Auto) Neut # (Auto) Lymph # (Auto) [place] # (Auto) Eos # (Auto) Baso # (Auto) WBC Differential Differential Comment Sodium 125 L Potassium 4.3 Chloride 92 L Carbon Dioxide 25.7 Anion Gap 7 BUN 12 Creatinine 0.89 Estimated GFR 82 L POC Glucose Random Glucose 117 H Osmolality Calcium 8.6 Total Bilirubin AST ALT Alkaline Phosphatase Troponin I Total Protein Albumin TSH Cortisol Urine Color Urine Clarity Urine pH Ur Specific [place] Urine Protein Urine Glucose (UA) Urine Ketones Urine Occult Blood Urine Nitrate Urine Bilirubin Urine Urobilinogen Ur Leukocyte Esterase Urine RBC Urine WBC Ur Squamous Epith Cells Hyaline Casts Urine Mucus Micro UA Comment Ur Microscopic Review Urine Culture Comments Urine Osmolality 396 Ur Random Sodium 102 05/23/18 05/23/18 05/23/18 06:14 06:14 07:42 WBC RBC Hgb Hct MCV MCH MCHC RDW Plt Count MPV Neut % (Auto) Lymph % (Auto) [place] % (Auto) Eos % (Auto) Baso % (Auto) Neut # (Auto) Lymph # (Auto) [place] # (Auto) Eos # (Auto) Baso # (Auto) WBC Differential Differential Comment Sodium Potassium Chloride Carbon Dioxide Anion Gap BUN Creatinine Estimated GFR POC Glucose 85 Random Glucose Osmolality Calcium Total Bilirubin AST ALT Alkaline Phosphatase Troponin I Total Protein Albumin TSH 0.769 Cortisol 10.9 Urine Color Urine Clarity Urine pH Ur Specific [place] Urine Protein Urine Glucose (UA) Urine Ketones Urine Occult Blood Urine Nitrate Urine Bilirubin Urine Urobilinogen Ur Leukocyte Esterase Urine RBC Urine WBC Ur Squamous Epith Cells Hyaline Casts Urine Mucus Micro UA Comment Ur Microscopic Review Urine Culture Comments Urine Osmolality Ur Random Sodium 05/23/18 05/23/18 05/23/18 09:56 09:56 11:05 WBC RBC Hgb Hct MCV MCH MCHC RDW Plt Count MPV Neut % (Auto) Lymph % (Auto) [place] % (Auto) Eos % (Auto) Baso % (Auto) Neut # (Auto) Lymph # (Auto) [place] # (Auto) Eos # (Auto) Baso # (Auto) WBC Differential Differential Comment Sodium 125 L Potassium 3.9 Chloride 91 L Carbon Dioxide 23.4 Anion Gap 11 BUN 10 Creatinine 0.96 Estimated GFR 75 L POC Glucose 113 H Random Glucose 139 H Osmolality 260 L Calcium 8.6 Total Bilirubin AST ALT Alkaline Phosphatase Troponin I Total Protein Albumin TSH Cortisol Urine Color Urine Clarity Urine pH Ur Specific [place] Urine Protein Urine Glucose (UA) Urine Ketones Urine Occult Blood Urine Nitrate Urine Bilirubin Urine Urobilinogen Ur Leukocyte Esterase Urine RBC Urine WBC Ur Squamous Epith Cells Hyaline Casts Urine Mucus Micro UA Comment Ur Microscopic Review Urine Culture Comments Urine Osmolality Ur Random Sodium - Imaging Impressions Head CT 05/22/18 15:14 CONCLUSION: 1. No acute intracranial abnormality. 2. Atrophy and chronic white matter changes are again noted. . Chest X-Ray 05/22/18 15:15 CONCLUSION: Hyperexpanded and scarred lungs similar to before. No acute infiltrate seen. - Procedures None Assessment and Plan - Plan Mr. Keller is a pleasant 82 year old male with a history of prostate cancer, recent L1 fracture, diabetes mellitus who presented to the ED after an episode of near syncope. Near syncope -Possibly due to hypovolemia which is due to poor oral intake. -Will keep patient on NS. -Orthostatic blood pressure shows systolic blood pressure drop of 18 mmHg. Hyponatremia - Na 123 on admission. About a month ago it was 135. -Likely due to hypovolemia. Improved 125 today. -Continue NS infusion. Urine osmolality was 396 and urine random sodium was 102. Serum osmolality 260. Random cortisol was 10.9. Will obtain a cosyntropin study in the morning. Provide IV cosyntropin 0.25 mg in the morning at 6 AM. Within 30-60 minutes, will obtain cortisol level. If indicated, we can start patient on hydrocortisone 10 mg in the morning, 5 mg in the early afternoon and 5 mg in the evening. Diabetes mellitus -Glucose 127. Will keep him on sliding scale insulin. -If needed, consider Levemir. Goal BG 140-180. BPH - Mirabegron was started about a week ago. I don't think this is the reason for hyponatremia. Recent L1 compression fracture - Probably conservative management, PT. PT recommends SNF placement. Full code. Lovenox for DVT prophylaxis. Discharge plan: Form 3008 signed. Likely discharge to SNF in 1-2 days.
[2018-05-23] MEDS: Enoxaparin Inj 40 MG/0.4 ML Syringe SQ SCH (17:15)
--- NOTE | 2018-05-23 20:15 | ECG ---
Date Performed: 05/22/2018 Time Performed: 15:20:35 PTAGE: 82 years EKG: Sinus rhythm WITH FIRST DEGREE AV BLOCK LEFT AXIS DEVIATION LEFT ANTERIOR FASCICULAR BLOCK ANTERIOR ST-T-WAVE ABN ORMALITY, CANNOT EXCLUDE ISCHEMIA Compared to previous tracing, ST-T WAVE ABNORMALITIES ARE NEW. Clin ical correlation is recommended ABNORMAL ECG PREVIOUS TRACING : 09/23/2015 15.59 DOCTOR: Rios Townsend Interpretating Date/Time 05/23/2018 20:14:25
[2018-05-24] MEDS ORDERED: ALPRAZolam 0.5 MG Tablet PO ONE (01:59)
[2018-05-24] MEDS: Sod Chloride 0.9% Inj 1,000 ML IV.CONT SCH ×2 (02:25→13:27)
[2018-05-24 06:40] LABS: Anion Gap 9 meq/L (5-15); Blood Urea Nitrogen 7 mg/dL (7-18); Calcium 8.3 mg/dL (8.5-10.1); Carbon Dioxide 24.5 meq/L (21.0-32.0); Chloride 92 meq/L (98-107); Glomerular Filtration Rate Greater Than 89 mL/min (>89); Glucose,Random 79 mg/dL (74-106); Potassium 3.9 meq/L (3.5-5.1); Sodium 125 meq/L (136-145)
[2018-05-24] MEDS: Insulin NovoLOG Aspart Correctional Sugar Inj SQ SCH ×4 (08:36→20:13)
[2018-05-24] MEDS: Enoxaparin Inj 40 MG/0.4 ML Syringe SQ SCH (10:50)
[2018-05-24] MEDS ORDERED: Sodium Chloride 1 GM Tablet PO ONE (17:10)
--- NOTE | 2018-05-24 17:20 | P.PN ---
Subjective Interval history: The patient is in the chair. The patient is confused when is not around and he was pulling IVs today did not get much of IVF NS Repeat Na is 125, will give NaCl po at this time and restart IVF with NS. Will check bmp tonight Patient says he gets confused at times. No cp, sob, n/v/d/c. Had a BM today. No abd cramps or muscle cramps. Physical Exam Vital signs: Vital Signs 05/23/18 19:24 05/23/18 20:44 05/23/18 23:00 Temperature 97.4 F L 98.2 F Pulse Rate 59 L 59 L 63 Respiratory Rate 18 18 Blood Pressure 151/83 H 152/77 H Pulse Oximetry 97 97 05/24/18 00:00 05/24/18 03:30 05/24/18 03:46 Temperature 97.8 F Pulse Rate 61 59 L 52 L Respiratory Rate 17 Blood Pressure 136/68 Pulse Oximetry 97 05/24/18 08:30 05/24/18 12:10 05/24/18 15:20 Temperature 97.8 F 97.3 F L 97.3 F L Pulse Rate 67 70 82 Respiratory Rate 18 19 19 Blood Pressure 153/80 H 151/91 H 162/74 H Pulse Oximetry 96 93 L 90 L Intake & Output 05/23/18 05/24/18 05/24/18 18:59 06:59 18:59 Intake Total 2960 / 2960 1124 / 1124 1959 Balance 2960 / 2960 1124 / 1124 1959 Weight 77.9 kg Intake: IV 1999 644 / 644 1000 / 1000 NS Inj 1,000 ML @ 100 mls/hr IV 1999 644 / 644 1000 / 1000 .CONT .Q10H CHELE Rx#:[id number] Oral 960 / 960 480 / 480 960 / 960 Other: # Voids 4 3 5 Date of Last Bowel Movement 05/23/18 05/24/18 # Bowel Movements 1 0 1 Narrative: GENERAL: Alert and awake, pleasantly confused at times, appears in NAD. CARDIOVASCULAR: Regular rate and rhythm without murmurs, gallops, or rubs. RESPIRATORY: Breath sounds equal bilaterally. No accessory muscle use. GASTROINTESTINAL: Abdomen soft, non-tender, nondistended. MUSCULOSKELETAL: No cyanosis, or edema. BACK: Nontender without obvious deformity. No CVA tenderness. NEURO: Pleasantly confused, alert and awake. CN grossly normal, follows commands. No focal deficits. Muscle strength grossly normal. Results - Labs CBC & Chem 7: 05/22/18 15:20 05/24/18 05:51 Laboratory Results - last 24 hr 05/23/18 05/23/18 05/24/18 17:16 21:01 05:51 Sodium Potassium Chloride Carbon Dioxide Anion Gap BUN Creatinine Estimated GFR POC Glucose 108 105 Random Glucose Calcium Cortisol 17.8 05/24/18 05/24/18 05:51 16:41 Sodium 125 L Potassium 3.9 Chloride 92 L Carbon Dioxide 24.5 Anion Gap 9 BUN 7 Creatinine 0.79 Estimated GFR Greater than 89 POC Glucose 218 H Random Glucose 79 Calcium 8.3 L Cortisol - Procedures None Assessment and Plan - Plan Mr. Keller is a pleasant 82 year old male with a history of prostate cancer, recent L1 fracture, diabetes mellitus who presented to the ED after an episode of near syncope. Near syncope -Possibly due to hypovolemia which is due to poor oral intake. -Will keep patient on NS. -Orthostatic blood pressure shows systolic blood pressure drop of 18 mmHg. Hyponatremia - Na 123 on admission. About a month ago it was 135. -Likely due to hypovolemia. Improved 125 today. The patient is confused when is not around and he was pulling IVs today did not get much of IVF NS Repeat Na is 125, will give NaCl po at this time and restart IVF with NS. Will check bmp tonight. Monitor closely Na, avoid fast correction. -Continue NS infusion. Urine osmolality was 396 and urine random sodium was 102. Serum osmolality 260. Random cortisol was 10.9. Will obtain a cosyntropin study. Provide IV cosyntropin 0.25 mg in the morning at 6 AM. Within 30-60 minutes, will obtain cortisol level. If indicated, we can start patient on hydrocortisone 10 mg in the morning, 5 mg in the early afternoon and 5 mg in the evening. - consult nephrology Diabetes mellitus -Glucose 127. Will keep him on sliding scale insulin. -If needed, consider Levemir. Goal BG 140-180. BPH - Mirabegron was started about a week ago. I don't think this is the reason for hyponatremia. Recent L1 compression fracture - Probably conservative management, PT. PT recommends SNF placement. Full code. Lovenox for DVT prophylaxis. Discharge plan: Form 3008 signed. Likely discharge to SNF in 1-2 days.
[2018-05-24] MEDS: Sodium Chloride 1 GM Tablet PO SCH (18:39)
[2018-05-24 19:05] LABS: Calcium 8.4 mg/dL (8.5-10.1); Carbon Dioxide 22.4 meq/L (21.0-32.0); Potassium 3.5 meq/L (3.5-5.1)
[2018-05-24] MEDS: ALPRAZolam 0.5 MG Tablet PO SCH (20:11)
[2018-05-25 06:35] LABS: Calcium 8.2 mg/dL (8.5-10.1); Carbon Dioxide 21.3 meq/L (21.0-32.0); Potassium 3.4 meq/L (3.5-5.1)
[2018-05-25] MEDS: Insulin NovoLOG Aspart Correctional Sugar Inj SQ SCH ×4 (09:02→21:05)
[2018-05-25] MEDS: Enoxaparin Inj 40 MG/0.4 ML Syringe SQ SCH (10:09)
[2018-05-25] MEDS: Sodium Chloride 1 GM Tablet PO SCH ×2 (10:10→21:06)
--- NOTE | 2018-05-25 13:25 | P.PN ---
Subjective Interval history: Somehow improved today less confused. at bedside very supportive. Patient denies any abdominal cramps or abdominal pain. No fever or chills no nausea or vomiting. Still not eating significantly. He complains of excessive back pain and not able much to ambulate. Says he had recent imaging and he has L1 fracture. We will consult neurosurgery for evaluation. Physical Exam Vital signs: Vital Signs 05/24/18 15:20 05/24/18 20:00 05/25/18 00:00 Temperature 97.3 F L 97.9 F 97.6 F Pulse Rate 82 76 60 Respiratory Rate 19 16 16 Blood Pressure 162/74 H 137/81 133/75 Pulse Oximetry 90 L 98 60 L 05/25/18 04:00 Temperature 97.4 F L Pulse Rate 61 Respiratory Rate 15 Blood Pressure 148/78 H Pulse Oximetry 97 Intake & Output 05/24/18 05/25/18 05/25/18 18:59 06:59 18:59 Intake Total 1959 500 / 500 Output Total 300 / 300 Balance 1959 200 / 200 Weight 97.6 kg Intake: IV 1000 / 1000 NS Inj 1,000 ML @ 100 mls/hr IV 1000 / 1000 .CONT .Q10H [facility] Rx#:[id number] Oral 960 / 960 500 / 500 Output: Urine 300 / 300 Other: # Voids 5 4 Date of Last Bowel Movement 05/24/18 05/24/18 05/24/18 # Bowel Movements 1 Narrative: GENERAL: The patient is a very pleasant 82-year-old male, well-nourished, well- developed patient. CARDIOVASCULAR: Regular rate and rhythm without murmurs, gallops, or rubs. RESPIRATORY: Breath sounds equal bilaterally. No accessory muscle use. GASTROINTESTINAL: Abdomen soft, non-tender, nondistended. EXTREMITIES: No edema NEUROLOGICAL: Awake, alert, and oriented x 3. Non-focal. Results - Labs CBC & Chem 7: 05/22/18 15:20 05/25/18 05:09 Laboratory Results - last 24 hr 05/24/18 05/24/18 05/24/18 16:41 18:26 19:51 Sodium 126 L Potassium 3.5 Chloride 91 L Carbon Dioxide 22.4 Anion Gap 13 BUN 9 Creatinine 1.09 Estimated GFR 65 L POC Glucose 218 H 116 H Random Glucose 159 H Calcium 8.4 L 05/25/18 05/25/18 05:09 12:01 Sodium 128 L Potassium 3.4 L Chloride 95 L Carbon Dioxide 21.3 Anion Gap 12 BUN 8 Creatinine 0.95 Estimated GFR 76 L POC Glucose 106 Random Glucose 94 Calcium 8.2 L - Procedures None Assessment and Plan - Plan Mr. Keller is a pleasant 82 year old male with a history of prostate cancer, recent L1 fracture, diabetes mellitus who presented to the ED after an episode of near syncope. Near syncope -Possibly due to hypovolemia which is due to poor oral intake. -Will keep patient on NS. -Orthostatic blood pressure shows systolic blood pressure drop of 18 mmHg. Hyponatremia - Na 123 on admission. About a month ago it was 135. -Likely due to hypovolemia/ poor PO intake and mild SIADH. Improved 127 today. On NaCl po at this time Monitor closely Na, avoid fast correction. DC NS infusion per nephrology. Urine osmolality was 396 and urine random sodium was 102. Serum osmolality 260. Random cortisol was 10.9. - consult nephrology Patient received 1 dose of Samsca 15 mg p.o. x1 per nephro recs Diabetes mellitus -Glucose 127. Will keep him on sliding scale insulin. -If needed, consider Levemir. Goal BG 140-180. BPH - Mirabegron was started about a week ago. I don't think this is the reason for hyponatremia. Recent L1 compression fracture - Probably conservative management, PT. PT recommends SNF placement. Will consult neurosurgery for eval. Full code. Lovenox for DVT prophylaxis. Discharge plan: Form 3008 signed. Likely discharge to SNF in 1-2 days. Patient and doesn't want SNF however. Discussed with the patient, at bedside, nurse.
--- NOTE | 2018-05-25 16:44 | P.CONNP ---
History of Present Illness Service: Nephrology Consult date: 05/25/18 Requesting Physician: Luzmaria Jay Reason for Consult: Hyponatremia Primary Care Provider: Winnie Moulton MD Chief Complaint: Almost passed out. 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 Review of Systems Constitutional: Reports anorexia Eyes: Denies blind spots, Denies blurry vision, Denies bulging eyes, Denies change in vision, Denies double vision, Denies discharge, Denies dry eyes, Denies floaters, Denies irritation, Denies itchy eyes, Denies loss of vision, Denies pain, Denies requires corrective lenses, Denies sensitivity to light, Denies other Ears, Nose, Mouth, and Throat: Denies abnormal hearing, Denies bleeding gums, Denies bad breath, Denies change in voice, Denies dental pain, Denies difficulty swallowing, Denies dizziness, Denies dry mouth, Denies ear discharge , Denies ear pain, Denies facial pain, Denies headache(s), Denies hearing loss, Denies hoarseness, Denies lip swelling, Denies nosebleed, Denies mouth lesions, Denies mouth pain, Denies nasal congestion, Denies nasal discharge, Denies nasal obstruction, Denies nasal trauma, Denies neck lump, Denies neck pain, Denies nose pain, Denies pain with swallowing, Denies poor balance, Denies post nasal drip, Denies ringing in the ears, Denies sinus pain, Denies sinus pressure , Denies sore throat, Denies throat swelling, Denies tongue swelling, Denies other Cardiovascular: Denies chest pain, Denies chest pain at rest, Denies chest pain with activity, Denies excessive sweating, Denies fainting, Denies fast heart rate, Denies foot swelling, Denies generalized swelling, Denies irregular heart rhythm, Denies leg pain with activity, Denies leg sores, Denies leg swelling, Denies lightheadedness, Denies radiating jaw, neck or arm pain, Denies rapid, pounding, or irregular heartbeat, Denies shortness of breath, Denies shortness of breath with activity, Denies shortness of breath when lying down, Denies shortness of breath causing sudden awakening, Denies slow heart rate, Denies other Respiratory: Reports other Gastrointestinal: Reports change in bowel habits, Reports other (Low appetite) Genitourinary: Reports urinary frequency Musculoskeletal: Denies abnormal walking, Denies back pain, Denies body aches, Denies decreased muscle mass, Denies deformity, Denies joint pain, Denies joint swelling, Denies limited joint movement, Denies loss of height, Denies muscle cramps, Denies muscle weakness, Denies neck pain, Denies numbness, Denies radiating pain into limb, Denies stiffness, Denies tingling, Denies other Neurologic: Reports weakness PMFSH - History History Provided By: Patient, Family Member - Medical History Medical History: Medical History (Last Reviewed 05/25/18 @ 16:40 by Christina Vieira MD) Compression fracture of L1 lumbar vertebra Diabetes Insomnia - Surgical History Surgical History: Surgical History (Last Reviewed 05/25/18 @ 16:40 by Christina Vieira MD) History of cholecystectomy - Family History Family History: Family History (Last Updated 05/25/18 @ 16:41 by Christina Vieira MD) Other Family history non-contributory - Social History I have reviewed the patient's Social History: Yes - Tobacco History Second Hand Smoke Exposure: No Smoking Status: Former smoker - Alcohol History How Often Do You Have a Drink Containing Alcohol: 2 to 3 times a week - Substance Use History Substance History: No History of Abuse - Travel History Recent Travel in the [place] Within the Last 8 Weeks: No Recent Travel Out of the Country Within the Last 8 Weeks: No - Immunization History Tetanus Immunization: Unsure Hx Influenza Vaccine This Season: No Medications and Allergies Active Medications: Active Medications Acetaminophen (Tylenol) 650 mg PO Q4H PRN PRN Reason: Headache, fever, pain 1-4 Al Hydroxide/Mg Hydroxide (Milk Of Magnesia Liq) 30 ml PO Q12H PRN PRN Reason: Mild Constipation Alprazolam (Xanax) 0.5 mg PO HS [facility] Last Admin: 05/24/18 20:11 Dose: 0.5 mg Bisacodyl (Dulcolax Supp) 10 mg RECTAL DAILY PRN PRN Reason: SEVERE CONSITIPATION Dextrose (D50w Vial) 50 ml IV.PUSH UNSCH PRN PRN Reason: PER HYPOGLYCEMIA PROTOCOL Enoxaparin Sodium (Lovenox Inj) 40 mg SQ DAILY [facility] Last Admin: 05/25/18 10:09 Dose: 40 mg Glucagon (Glucagon Inj) 1 mg OTHER PRN PRN PRN Reason: for Hypoglycemia Protocol Insulin Aspart (Novolog Insulin Correctional Sugar Inj) 0 unit SQ ACHS [facility]; Protocol Last Admin: 05/25/18 13:04 Dose: Not Given Lactulose (Lactulose Liq) 30 ml PO DAILY PRN PRN Reason: SEVERE CONSITIPATION Ondansetron HCl (Zofran Inj) 4 mg IV.PUSH Q6H PRN PRN Reason: NAUSEA OR VOMITING Sennosides (Senokot) 17.2 mg PO Q12H PRN PRN Reason: Moderate Constipation Sodium Chloride (Sodium Chloride) 1 gm PO DAILY [facility] Last Admin: 05/25/18 10:10 Dose: 1 gm Tolvaptan (Samsca) 15 mg PO ONCE ONE Stop: 05/25/18 17:01 Allergies Allergy/AdvReac Type Severity Reaction Status Date / Time lisinopril AdvReac Severe swelling Verified 05/22/18 21:52 to mouth Home Medications Medication Instructions Recorded Confirmed Type alprazolam 0.5 mg PO HS 05/22/18 05/22/18 History metformin 500 mg PO DAILY 05/22/18 05/22/18 History mirabegron [Myrbetriq] 25 mg PO DAILY 05/22/18 05/22/18 History Exam Vital signs: Vital Signs 05/24/18 20:00 05/25/18 00:00 05/25/18 04:00 Temperature 97.9 F 97.6 F 97.4 F L Pulse Rate 76 60 61 Respiratory Rate 16 16 15 Blood Pressure 137/81 133/75 148/78 H Pulse Oximetry 98 60 L 97 05/25/18 08:00 05/25/18 12:00 Temperature 98.6 F 97.8 F Pulse Rate 62 53 L Respiratory Rate 16 18 Blood Pressure 125/80 164/86 H Pulse Oximetry 98 97 Intake & Output 05/24/18 05/25/18 05/25/18 18:59 06:59 18:59 Intake Total 1959 500 / 500 Output Total 300 / 300 Balance 1959 200 / 200 Weight 97.6 kg Intake: IV 1000 / 1000 NS Inj 1,000 ML @ 100 mls/hr IV 1000 / 1000 .CONT .Q10H [facility] Rx#:[id number] Oral 960 / 960 500 / 500 Output: Urine 300 / 300 Other: # Voids 5 4 Date of Last Bowel Movement 05/24/18 05/24/18 05/24/18 # Bowel Movements 1 Narrative: GENERAL: Well-nourished, well-developed patient. SKIN: Warm and dry. HEAD: Normocephalic. EYES: No scleral icterus. No injection or drainage. NECK: Supple, trachea midline. No JVD or lymphadenopathy. CARDIOVASCULAR: Regular rate and rhythm without murmurs, gallops, or rubs. RESPIRATORY: Breath sounds equal bilaterally. No accessory muscle use. GASTROINTESTINAL: Abdomen soft, non-tender, nondistended. EXTREMITIES: No edema NEUROLOGICAL: Awake, alert, and oriented x 3. Non-focal. Results - Lab Results 05/22/18 15:20 05/25/18 05:09 Most recent lab results Calcium 8.2 mg/dL (8.5-10.1) L 05/25/18 05:09 Assessment and Plan - Assessment (1) Hyponatremia Code(s): E87.1 - Hypo-osmolality and hyponatremia Status: Acute (2) Syncope and collapse Code(s): R55 - Syncope and collapse Status: Acute - Plan Patient urine sodium excretion is increased and has increased urine osmolality indicating SIADH, chest x-ray suggests emphysema Most likely he has decreased intake along with some degree of syndrome of inappropriate ADH secretion Leading to drop in his sodium I told him to drink modestly Low potassium was replaced which was marginally low at 3.4 Check magnesium and phosphorus level. Can sprinkle salt on the food, he states that he is doing it currently I ordered 1 dose of Samsca 15 mg p.o. x1 I agree with discontinuing IV fluids He may follow-up as outpatient.
--- NOTE | 2018-05-25 19:02 | CT ---
EXAM DATE: 05/25/2018 6:51 PM EST AGE/SEX: 82 years / Male INDICATIONS: Lower back pain. Evaluate for fracture. CLINICAL DATA: This is the patient's initial encounter. Patient reports that signs and symptoms have been present for 1 day and indicates a pain score of 7/10. MEDICAL/SURGICAL HISTORY: Diabetes. Cholecystectomy. RADIATION DOSE: 36.22 CTDI (mGy) COMPARISON: No prior exams available for comparison. TECHNIQUE: Contiguous axial images were acquired with a multirow detector CT scanner without contras t. Multiplanar reconstructions in the sagittal and coronal plane were also performed. Using automate d exposure control and adjustment of the mA and/or kV according to patient size, radiation dose was k ept as low as reasonably achievable to obtain optimal diagnostic quality images. DICOM format image data is available electronically for review and comparison. FINDINGS: An acute or subacute mild superior endplate compression fracture involves the L1 vertebral body. The posterior cortex is intact and there are no retropulsed fragments. There is no fracture-associated fo raminal or spinal stenosis. T12-L1: There is mild annular bulging and mild bilateral facet osteoarthritis. No foraminal or spina l stenosis. L1-L2: The disc has slight loss of height. Small, broad posterior disc protrusion and mild bilateral facet osteoarthritis present. There is mild bilateral foraminal stenosis. L2-L3: Disc height within normal limits. Minimal bulging of the disc annulus and mild bilateral face t osteoarthritis. No foraminal or spinal stenosis. L3-L4: The disc has moderate loss of height and vacuum phenomena. Small, broad posterior disc osteop hyte complex and moderate to severe bilateral facet osteoarthritis with thickening of the ligamentum flavum. Mild to moderate spinal stenosis there is mild to moderate right and mild left foraminal sten osis. L4-L5: The disc has moderate loss of height and vacuum phenomena. Small to moderate, broad posterior disc protrusion and moderate bilateral facet osteoarthritis with thickening of the ligamentum flavum . There is mild spinal stenosis and moderate right, mild to moderate left foraminal stenosis. L5-S1: The disc has mild loss of height and vacuum phenomena. Small, broad posterior disc osteophyte complex and moderate bilateral facet osteoarthritis present. No significant spinal stenosis. There i s mild to moderate left foraminal stenosis. CONCLUSION: 1. Acute or subacute appearing mild superior endplate compression fracture of the L1 vertebra. No re tropulsed fragments. No fracture-associated foraminal or spinal stenosis. 2. Multilevel degenerative changes as described. No other fractures are seen. No subluxations. Electronically signed by: Joaquin Storey MD 05/25/2018 7:00 PM EST
[2018-05-25] MEDS: ALPRAZolam 0.5 MG Tablet PO SCH (21:06)
[2018-05-26 07:24] LABS: Calcium 8.6 mg/dL (8.5-10.1); Carbon Dioxide 24.1 meq/L (21.0-32.0); Magnesium 1.5 mg/dL (1.5-2.5); Phosphorus 3.4 mg/dL (2.5-4.9)
[2018-05-26] MEDS: Insulin NovoLOG Aspart Correctional Sugar Inj SQ SCH ×4 (07:49→22:33)
[2018-05-26] MEDS: Enoxaparin Inj 40 MG/0.4 ML Syringe SQ SCH (09:04)
[2018-05-26] MEDS: Sodium Chloride 1 GM Tablet PO SCH (09:05)
--- NOTE | 2018-05-26 14:41 | P.CONNS ---
<BelenJe - Last Filed: 05/26/18 14:41> History of Present Illness Primary Care Provider: Winnie Moulton MD Chief Complaint: Almost passed out. [facility] - History History Provided By: Patient, Family Member - Medical History Medical History: Medical History (Last Reviewed 05/26/18 @ 07:42 by Joseph Cruz) Compression fracture of L1 lumbar vertebra Diabetes Insomnia - Surgical History Surgical History: Surgical History (Last Reviewed 05/25/18 @ 16:40 by Christina Vieira MD) History of cholecystectomy - Family History Family History: Family History (Last Reviewed 05/26/18 @ 07:42 by Joseph Cruz) Other Family history non-contributory - Tobacco History Second Hand Smoke Exposure: No Smoking Status: Former smoker - Alcohol History How Often Do You Have a Drink Containing Alcohol: 2 to 3 times a week - Substance Use History Substance History: No History of Abuse - Travel History Recent Travel in the [place] Within the Last 8 Weeks: No Recent Travel Out of the Country Within the Last 8 Weeks: No - Immunization History Tetanus Immunization: Unsure Hx Influenza Vaccine This Season: No Medications and Allergies Allergies Allergy/AdvReac Type Severity Reaction Status Date / Time lisinopril AdvReac Severe swelling Verified 05/22/18 21:52 to mouth Home Medications Medication Instructions Recorded Confirmed Type alprazolam 0.5 mg PO HS 05/22/18 05/22/18 History metformin 500 mg PO DAILY 05/22/18 05/22/18 History mirabegron [Myrbetriq] 25 mg PO DAILY 05/22/18 05/22/18 History Active Medications: Active Medications Acetaminophen (Tylenol) 650 mg PO Q4H PRN PRN Reason: Headache, fever, pain 1-4 Al Hydroxide/Mg Hydroxide (Milk Of Magnesia Liq) 30 ml PO Q12H PRN PRN Reason: Mild Constipation Alprazolam (Xanax) 0.5 mg PO HS [facility] Last Admin: 05/25/18 21:06 Dose: 0.5 mg Bisacodyl (Dulcolax Supp) 10 mg RECTAL DAILY PRN PRN Reason: SEVERE CONSITIPATION Dextrose (D50w Vial) 50 ml IV.PUSH UNSCH PRN PRN Reason: PER HYPOGLYCEMIA PROTOCOL Enoxaparin Sodium (Lovenox Inj) 40 mg SQ DAILY [facility] Last Admin: 05/26/18 09:04 Dose: 40 mg Glucagon (Glucagon Inj) 1 mg OTHER PRN PRN PRN Reason: for Hypoglycemia Protocol Insulin Aspart (Novolog Insulin Correctional Sugar Inj) 0 unit SQ ACHS [facility]; Protocol Last Admin: 05/26/18 12:39 Dose: Not Given Lactulose (Lactulose Liq) 30 ml PO DAILY PRN PRN Reason: SEVERE CONSITIPATION Ondansetron HCl (Zofran Inj) 4 mg IV.PUSH Q6H PRN PRN Reason: NAUSEA OR VOMITING Sennosides (Senokot) 17.2 mg PO Q12H PRN PRN Reason: Moderate Constipation Sodium Chloride (Sodium Chloride) 1 gm PO BID [facility] Last Admin: 05/26/18 09:05 Dose: 1 gm Exam Vital signs: Vital Signs 05/25/18 19:45 05/25/18 21:00 05/25/18 23:50 Temperature 97.5 F L 97.9 F Pulse Rate 63 62 67 Respiratory Rate 18 18 Blood Pressure 150/80 H 137/78 Pulse Oximetry 98 95 05/26/18 00:00 05/26/18 04:00 05/26/18 08:00 Temperature 98.3 F 97.8 F Pulse Rate 68 61 67 Respiratory Rate 18 17 Blood Pressure 142/77 H 150/80 H Pulse Oximetry 98 96 05/26/18 12:00 Temperature 97.4 F L Pulse Rate 68 Respiratory Rate 18 Blood Pressure 143/83 H Pulse Oximetry 94 L Intake & Output 05/25/18 05/26/18 05/26/18 18:59 06:59 18:59 Intake Total 150 / 150 Balance 150 / 150 Weight 89.4 kg Intake: Oral 150 / 150 Other: # Voids 1 Date of Last Bowel Movement 05/24/18 05/24/18 05/24/18 Results - Laboratory Findings CBC and BMP: 05/22/18 15:20 05/26/18 06:23 Abnormal lab findings: Abnormal Labs 05/22/18 05/22/18 05/22/18 15:20 15:20 20:55 RBC 4.20 L MCH 35.0 H Kimball % (Auto) 13.9 H Kimball # (Auto) 1.0 H Sodium 123 L* Potassium Chloride 89 L BUN Estimated GFR 59 L POC Glucose Random Glucose 127 H Osmolality Calcium Troponin I Less than 0.02 L Albumin 3.3 L Urine Ketones Trace H Urine Mucus Few H 05/22/18 05/23/18 05/23/18 23:23 09:56 09:56 RBC MCH Kimball % (Auto) Kimball # (Auto) Sodium 125 L 125 L Potassium Chloride 92 L 91 L BUN Estimated GFR 82 L 75 L POC Glucose Random Glucose 117 H 139 H Osmolality 260 L Calcium Troponin I Albumin Urine Ketones Urine Mucus 05/23/18 05/24/18 05/24/18 11:05 05:51 16:41 RBC MCH Kimball % (Auto) Kimball # (Auto) Sodium 125 L Potassium Chloride 92 L BUN Estimated GFR POC Glucose 113 H 218 H Random Glucose Osmolality Calcium 8.3 L Troponin I Albumin Urine Ketones Urine Mucus 05/24/18 05/24/18 05/25/18 18:26 19:51 05:09 RBC MCH Kimball % (Auto) Kimball # (Auto) Sodium 126 L 128 L Potassium 3.4 L Chloride 91 L 95 L BUN Estimated GFR 65 L 76 L POC Glucose 116 H Random Glucose 159 H Osmolality Calcium 8.4 L 8.2 L Troponin I Albumin Urine Ketones Urine Mucus 05/25/18 05/26/18 05/26/18 21:05 06:23 07:33 RBC MCH Kimball % (Auto) Kimball # (Auto) Sodium Potassium Chloride BUN 6 L Estimated GFR 77 L POC Glucose 148 H 133 H Random Glucose Osmolality Calcium Troponin I Albumin Urine Ketones Urine Mucus <Sybil Franks - Last Filed: 05/27/18 08:21> History of Present Illness Primary Care Provider: Winnie Moulton MD History of Present Illness: Mr. Keller is a 82 year old male who presented to ED following syncope and complaints of back pain. Currently patient report no back pain. His family member reports patient will be in pain with movement. A CT of the lumbar spine was obtained yesterday which showed L1 fracture. Neurosurgical evaluation requested. He denies radiating pain in his legs, paresthesias, bowel or bladder incontinence. PMFSH - Medical History Medical History: Medical History (Last Reviewed 05/26/18 @ 07:42 by Joseph Cruz) Compression fracture of L1 lumbar vertebra Diabetes Insomnia - Surgical History Surgical History: Surgical History (Last Reviewed 05/25/18 @ 16:40 by Christina Vieira MD) History of cholecystectomy - Family History Family History: Family History (Last Reviewed 05/26/18 @ 07:42 by Joseph Cruz) Other Family history non-contributory Medications and Allergies Active Medications: Active Medications Acetaminophen (Tylenol) 650 mg PO Q4H PRN PRN Reason: Headache, fever, pain 1-4 Hydrocodone Bitart/Acetaminophen ([place] 5/325) 1 tab PO Q6H PRN PRN Reason: severe pain >6 Al Hydroxide/Mg Hydroxide (Milk Of Magnesia Liq) 30 ml PO Q12H PRN PRN Reason: Mild Constipation Alprazolam (Xanax) 0.5 mg PO HS [facility] Last Admin: 05/25/18 21:06 Dose: 0.5 mg Bisacodyl (Dulcolax Supp) 10 mg RECTAL DAILY PRN PRN Reason: SEVERE CONSITIPATION Dextrose (D50w Vial) 50 ml IV.PUSH UNSCH PRN PRN Reason: PER HYPOGLYCEMIA PROTOCOL Enoxaparin Sodium (Lovenox Inj) 40 mg SQ DAILY [facility] Last Admin: 05/26/18 09:04 Dose: 40 mg Glucagon (Glucagon Inj) 1 mg OTHER PRN PRN PRN Reason: for Hypoglycemia Protocol Insulin Aspart (Novolog Insulin Correctional Sugar Inj) 0 unit SQ [facility]; Protocol Last Admin: 05/26/18 12:39 Dose: Not Given Lactulose (Lactulose Liq) 30 ml PO DAILY PRN PRN Reason: SEVERE CONSITIPATION Ondansetron HCl (Zofran Inj) 4 mg IV.PUSH Q6H PRN PRN Reason: NAUSEA OR VOMITING Sennosides (Senokot) 17.2 mg PO Q12H PRN PRN Reason: Moderate Constipation Sodium Chloride (Sodium Chloride) 1 gm PO BID [facility] Last Admin: 05/26/18 09:05 Dose: 1 gm Exam Vital signs: Vital Signs 05/25/18 19:45 05/25/18 21:00 05/25/18 23:50 Temperature 97.5 F L 97.9 F Pulse Rate 63 62 67 Respiratory Rate 18 18 Blood Pressure 150/80 H 137/78 Pulse Oximetry 98 95 05/26/18 00:00 05/26/18 04:00 05/26/18 08:00 Temperature 98.3 F 97.8 F Pulse Rate 68 61 67 Respiratory Rate 18 17 Blood Pressure 142/77 H 150/80 H Pulse Oximetry 98 96 05/26/18 12:00 Temperature 97.4 F L Pulse Rate 68 Respiratory Rate 18 Blood Pressure 143/83 H Pulse Oximetry 94 L Intake & Output 05/25/18 05/26/18 05/26/18 18:59 06:59 18:59 Intake Total 150 / 150 Balance 150 / 150 Weight 89.4 kg Intake: Oral 150 / 150 Other: # Voids 1 Date of Last Bowel Movement 05/24/18 05/24/18 05/24/18 Narrative: GENERAL: Laying in bed NAD SKIN: Warm and dry. HEAD: Atraumatic. Normocephalic. EYES: Pupils equal and round. No scleral icterus. No injection or drainage. ENT: No nasal bleeding or discharge. Mucous membranes pink and moist. NECK: Trachea midline. No JVD. CARDIOVASCULAR: Regular rate and rhythm. RESPIRATORY: No accessory muscle use. Clear to auscultation. Breath sounds equal bilaterally. GASTROINTESTINAL: Abdomen soft, non-tender, nondistended. MUSCULOSKELETAL: Extremities without clubbing, cyanosis, or edema. No obvious deformities. NEUROLOGICAL: Awake and alert. No obvious cranial nerve deficits. Motor grossly within normal limits. Five out of 5 muscle strength in the arms and legs. Results - Laboratory Findings CBC and BMP: 05/22/18 15:20 05/27/18 06:19 Abnormal lab findings: Abnormal Labs 05/22/18 05/22/18 05/22/18 15:20 15:20 20:55 RBC 4.20 L MCH 35.0 H Kimball % (Auto) 13.9 H Kimball # (Auto) 1.0 H Sodium 123 L* Potassium Chloride 89 L BUN Estimated GFR 59 L POC Glucose Random Glucose 127 H Osmolality Calcium Troponin I Less than 0.02 L Albumin 3.3 L Urine Ketones Trace H Urine Mucus Few H 05/22/18 05/23/18 05/23/18 23:23 09:56 09:56 RBC MCH Kimball % (Auto) Kimball # (Auto) Sodium 125 L 125 L Potassium Chloride 92 L 91 L BUN Estimated GFR 82 L 75 L POC Glucose Random Glucose 117 H 139 H Osmolality 260 L Calcium Troponin I Albumin Urine Ketones Urine Mucus 05/23/18 05/24/18 05/24/18 11:05 05:51 16:41 RBC MCH Kimball % (Auto) Kimball # (Auto) Sodium 125 L Potassium Chloride 92 L BUN Estimated GFR POC Glucose 113 H 218 H Random Glucose Osmolality Calcium 8.3 L Troponin I Albumin Urine Ketones Urine Mucus 05/24/18 05/24/18 05/25/18 18:26 19:51 05:09 RBC MCH Kimball % (Auto) Kimball # (Auto) Sodium 126 L 128 L Potassium 3.4 L Chloride 91 L 95 L BUN Estimated GFR 65 L 76 L POC Glucose 116 H Random Glucose 159 H Osmolality Calcium 8.4 L 8.2 L Troponin I Albumin Urine Ketones Urine Mucus 05/25/18 05/26/18 05/26/18 21:05 06:23 07:33 RBC MCH Kimball % (Auto) Kimball # (Auto) Sodium Potassium Chloride BUN 6 L Estimated GFR 77 L POC Glucose 148 H 133 H Random Glucose Osmolality Calcium Troponin I Albumin Urine Ketones Urine Mucus
[2018-05-26] MEDS ORDERED: Magnesium Oxide 400 MG Tablet PO ONE (15:50)
--- NOTE | 2018-05-26 17:56 | P.PN ---
Subjective Interval history: The patient was seen earlier today. Family his at bedside. The patient only complaint is back pain. He is able to walk with a walker he has a walker at home. He has very abnormal gait. Evaluated by Dr. Glover from neurosurgery who recommends MRI of the spine. His sodium is improved significantly. He is eating a little bit better. Denies any chest pain or shortness of breath no nausea vomiting no diarrhea or constipation. Physical Exam Vital signs: Vital Signs 05/25/18 19:45 05/25/18 21:00 05/25/18 23:50 Temperature 97.5 F L 97.9 F Pulse Rate 63 62 67 Respiratory Rate 18 18 Blood Pressure 150/80 H 137/78 Pulse Oximetry 98 95 05/26/18 00:00 05/26/18 04:00 05/26/18 08:00 Temperature 98.3 F 97.8 F Pulse Rate 68 61 67 Respiratory Rate 18 17 Blood Pressure 142/77 H 150/80 H Pulse Oximetry 98 96 05/26/18 12:00 Temperature 97.4 F L Pulse Rate 68 Respiratory Rate 18 Blood Pressure 143/83 H Pulse Oximetry 94 L Intake & Output 05/25/18 05/26/18 05/26/18 18:59 06:59 18:59 Intake Total 150 / 150 Balance 150 / 150 Weight 89.4 kg Intake: Oral 150 / 150 Other: # Voids 1 Date of Last Bowel Movement 05/24/18 05/24/18 05/24/18 Narrative: GENERAL: Pleasant 82 yo male, appears in NAD CARDIOVASCULAR: Regular rate and rhythm. RESPIRATORY: No accessory muscle use. Clear to auscultation. Breath sounds equal bilaterally. GASTROINTESTINAL: Abdomen soft, non-tender, nondistended. MUSCULOSKELETAL: Extremities without clubbing, cyanosis, or edema. No obvious deformities. NEUROLOGICAL: Awake and alert. No obvious cranial nerve deficits. Motor grossly within normal limits. Five out of 5 muscle strength in the arms and legs. Results - Labs CBC & Chem 7: 05/22/18 15:20 05/26/18 06:23 Laboratory Results - last 24 hr 05/25/18 05/26/18 05/26/18 21:05 06:23 07:33 Sodium 138 D Potassium 4.0 Chloride 106 D Carbon Dioxide 24.1 Anion Gap 8 BUN 6 L Creatinine 0.94 Estimated GFR 77 L POC Glucose 148 H 133 H Random Glucose 98 Calcium 8.6 Phosphorus 3.4 Magnesium 1.5 05/26/18 05/26/18 12:34 17:29 Sodium Potassium Chloride Carbon Dioxide Anion Gap BUN Creatinine Estimated GFR POC Glucose 103 95 Random Glucose Calcium Phosphorus Magnesium - Imaging Impressions Head CT 05/22/18 15:14 CONCLUSION: 1. No acute intracranial abnormality. 2. Atrophy and chronic white matter changes are again noted. . Chest X-Ray 05/22/18 15:15 CONCLUSION: Hyperexpanded and scarred lungs similar to before. No acute infiltrate seen. Lumbar Spine CT 05/25/18 00:00 CONCLUSION: 1. Acute or subacute appearing mild superior endplate compression fracture of the L1 vertebra. No retropulsed fragments. No fracture-associated foraminal or spinal stenosis. 2. Multilevel degenerative changes as described. No other fractures are seen. No subluxations. - Procedures None Assessment and Plan - Plan Mr. Keller is a pleasant 82 year old male with a history of prostate cancer, recent L1 fracture, diabetes mellitus who presented to the ED after an episode of near syncope. Near syncope -Possibly due to hypovolemia which is due to poor oral intake. -Will keep patient on NS. -Orthostatic blood pressure shows systolic blood pressure drop of 18 mmHg. Hyponatremia - Na 123 on admission. About a month ago it was 135. Na is back to normal. -Likely due to hypovolemia/ poor PO intake and mild SIADH. Will DC NaCl po. Regular diet. Monitor closely Na, avoid fast correction. DC NS infusion per nephrology. Urine osmolality was 396 and urine random sodium was 102. Serum osmolality 260. Random cortisol was 10.9. - consult nephrology Patient received 1 dose of Samsca 15 mg p.o. x1 per nephro recs Diabetes mellitus -Glucose 127. Will keep him on sliding scale insulin. -If needed, consider Levemir. Goal BG 140-180. BPH - Mirabegron was started about a week ago. I don't think this is the reason for hyponatremia. Recent L1 compression fracture - Probably conservative management, PT. PT recommends SNF placement. Will consult neurosurgery for eval. Seen by Dr Glover. Plan for MRI of the back. Full code. Lovenox for DVT prophylaxis. Discharge plan: Form 3008 signed. Likely discharge to SNF in 1-2 days. Patient and doesn't want SNF however. Discussed with the patient, at bedside, nurse. DC when improved and cleared by surgeon
--- NOTE | 2018-05-26 21:24 | MR ---
EXAM DATE: 05/26/2018 9:17 PM EST AGE/SEX: 82 years / Male INDICATIONS: Pain. L3 fracture. CLINICAL DATA: This is the patient's initial encounter. Patient reports that signs and symptoms have been present for 1 day and indicates a pain score of 8/10. MEDICAL/SURGICAL HISTORY: Diabetes mellitus type II. Cholecystectomy. COMPARISON: No prior exams available for comparison. TECHNIQUE: Multiplanar, multisequence MRI of the lumbar spine was performed without contrast. Patie nt was scanned in a sitting position; neutral, flexion, and extension scans were performed in the sa gittal plane. FINDINGS: Vertebra: There is compression fracture at T11 with mild loss of height and acute edema. Similar ku ges are seen at L1 with mild/moderate loss of height. No retropulsion of posterior fragments. Minimal retrolisthesis T12 on L1 and L1 on L2. Diffuse disc desiccation. Conus: Normal level and configuration. T12-L1: Minimal retrolisthesis. The thecal sac has a normal diameter. No evidence of disc bulge or p rotrusion. The neural foramina are patent bilaterally. L1-L2: Mild broad-based disc bulge abuts ventral thecal sac without canal stenosis. The neural for perla are patent bilaterally. L2-L3: The thecal sac has a normal diameter. No evidence of disc bulge or protrusion. The neural foramina are patent bilaterally. Mild facet arthropathy. L3-L4: Mild broad-based disc bulge abuts ventral thecal sac with mild canal stenosis. Moderate face t arthropathy The neural foramina are patent bilaterally. L4-L5: Mild broad-based disc bulge abuts the ventral thecal sac without canal stenosis. Moderate fa cet arthropathy. The neural foramina are patent bilaterally. L5-S1: The thecal sac has a normal diameter. No evidence of disc bulge or protrusion. The neural foramina are patent bilaterally. CONCLUSION: 1. Mild acute compression fracture at T11. 2. Mild to moderate acute compression fracture at L1. 3. Mild broad-based disc bulge at L3-4 causes mild canal stenosis. 4. Mild broad-based disc bulge at L1-2 and L4-5 levels without canal stenosis. Electronically signed by: Guille Almaraz MD 05/26/2018 9:22 PM EST
[2018-05-26] MEDS: ALPRAZolam 0.5 MG Tablet PO SCH (22:31)
[2018-05-27 07:40] LABS: Carbon Dioxide 26.2 meq/L (21.0-32.0); Potassium 3.6 meq/L (3.5-5.1)
[2018-05-27] MEDS: Insulin NovoLOG Aspart Correctional Sugar Inj SQ SCH (09:00)
[2018-05-27] MEDS: Enoxaparin Inj 40 MG/0.4 ML Syringe SQ SCH (09:38)
--- NOTE | 2018-05-27 10:41 | P.DCO ---
- Diagnosis (1) Compression fracture Status: Acute (2) Syncope and collapse Status: Acute (3) Hyponatremia Status: Acute (4) Risk for falls Status: Acute (5) Gait instability Status: Acute - Physical Therapy Order: Evaluate and treat, Improve ambulation, Strength and gait training - Occupational Therapy Order: Evaluate and treat, Improve ADL, Gross motor coordination, Fine motor coordination - Home Health Nursing Order: Medical education, Signs/symptoms of disease process, Medication education-adverse effect, Nursing assessment with vital signs - Case Management Consult Case Management Consult-Home Health: Yes - Certification I have seen patient Joaquin Keller on 05/27/18. My clinical findings support the need for the requested home health care services because: Deconditioned with increased weakness, Limited ability to care for self, High risk of falls I certify that my clinical findings support that this patient is homebound because: Post-op weakness, Unsteady gait/balance, Unsafe to leave home unassisted, Unable to use public transportation
[2018-05-27 12:50] VITALS: BP 141/85; RESP 16; TEMP 97.5; O2SAT 98
[2018-05-27 14:07] VITALS: PULSE 65
--- NOTE | 2018-05-27 15:54 | P.DS ---
Date of admission: 05/22/18 18:03 Primary care physician: Winnie Moulton MD Attending physician on discharge: Kristel Saenz Anticipated date of discharge: 05/27/18 Brief History from admission: Mr. Keller is an 82 year old male is with a history of prostate cancer and diabetes mellitus with a recent L1 compression fracture who presents to the ED on 05/22/2018 due to an episode of near syncope. Patient went to the toilet and as he sat, he slumped over but did not loose consciousness. Patient's subsequently called EMS and patient was brought to the ED. At the time of this interview, patient is doing much better per his at bedside. He was started on a new BPH medication, Mirabegron. Patient's does report that he has not been eating or drinking well in the recent few days. He does drink alcohol but has reduced alcohol in-take in recent days. No chest pain, shortness of breath, no fever/chills. No changes in bowel or bladder habits. Past medical history: Diabetes mellitus, L1 compression fracture, prostate cancer Past surgical history: Cholecystectomy Social history: Denies using tobacco. Drinks 2-3 drinks of whisky a day Family history: Sister from Lung cancer. Father had Alzheimer's. Patient update on day of discharge: Patient seen and examined. Patient denies any complaints of back pain at this time. Patient again declines snf facility and is insistent he will go home instead. Discussed with who is at the bedside. He denies any fever chills. Denies any chest pain or shortness of breath. He denies any nausea vomiting or abdominal pain. Discussed with nursing staff, no adverse events noted overnight. DS: Diagnosis - Discharge Diagnosis (1) Compression fracture Status: Acute (2) Syncope and collapse Status: Acute (3) Hyponatremia Status: Acute (4) Risk for falls Status: Acute (5) Gait instability Status: Acute DS: Medications - Discharge Medications Prescriptions: hydrocodone-acetaminophen 1 tab PO Q6H PRN #12 tab PRN Reason: severe pain >6 DS: Summary Hospital Course: Patient admitted with near syncopal episode felt likely to be due to hypovolemia secondary to poor oral intake. Patient was found to have hyponatremia with sodium level of 123 suspected due to hypovolemia. Patient was started on IV fluid hydration. Patient developed metabolic encephalopathy in the setting of confusion with hyponatremia and hypoxia. Patient's mentation improved with IV fluids and supplemental oxygen. Patient was seen in consultation by nephrology. Patient's sodium level improved to normal. Patient had known history of previous L1 fracture. Patient complained that he had little ability to ambulate secondary to excessive back pain. Neurosurgery was consulted and MRI revealed compression deformities of T11 and L1. Neurosurgery offered kyphoplasty procedure which patient declined. Patient improved clinically. He was evaluated by PT who recommended snf facility placement which patient and family declined. Case management assisted with discharge planning to home with home health care. Patient to follow-up with his PCP and neurosurgery following discharge. - Time Spent with Patient Total time spent providing and/or coordinating discharge services: Greater than 30 minutes Exam Vital signs: Vital Signs 05/26/18 16:00 05/26/18 20:00 05/26/18 22:49 Temperature 97.8 F 98.1 F Pulse Rate 80 57 L 63 Respiratory Rate 18 18 Blood Pressure 148/93 H 176/89 H 176/88 H Pulse Oximetry 96 95 05/27/18 00:00 05/27/18 04:00 05/27/18 08:00 Temperature 97.6 F 97.4 F L 97.6 F Pulse Rate 67 72 62 Respiratory Rate 18 18 14 Blood Pressure 159/84 H 151/90 H 147/80 H Pulse Oximetry 95 98 96 05/27/18 12:00 Temperature 97.5 F L Pulse Rate 65 Respiratory Rate 16 Blood Pressure 141/85 H Pulse Oximetry 98 Intake & Output 05/26/18 05/27/18 05/27/18 18:59 06:59 18:59 Intake Total 480 / 480 Balance 480 / 480 Intake: Oral 480 / 480 Other: # Voids 4 2 Date of Last Bowel Movement 05/24/18 05/24/18 Narrative: GENERAL: Well-developed well nourished elderly male patient in no acute distress. Awake and alert. at the bedside. SKIN: Warm and dry. HEENT: Atraumatic. Normocephalic. Pupils equal and round. No scleral icterus. No injection or drainage. No nasal bleeding or discharge. Mucous membranes pink and moist. NECK: Trachea midline. No JVD. CARDIOVASCULAR: Regular rate and rhythm. RESPIRATORY: No accessory muscle use. Clear to auscultation. Breath sounds equal bilaterally. GASTROINTESTINAL: Abdomen soft, non-tender, nondistended. +BS. MUSCULOSKELETAL: Extremities without clubbing, cyanosis, or edema. No obvious deformities. NEUROLOGICAL: Awake and alert. No obvious cranial nerve deficits. Motor grossly within normal limits. Patient able to move all extremities spontaneously. Normal speech. PSYCHIATRIC: Appropriate mood and affect; insight and judgment normal. Results Procedures completed during hospitalization: None Labs on day of discharge: Labs from last 24 hours 05/27/18 05/27/18 05/27/18 12:33 08:45 06:19 Sodium 137 Potassium 3.6 Chloride 104 Carbon Dioxide 26.2 Anion Gap 7 BUN 8 Creatinine 1.01 Estimated GFR 71 L POC Glucose 131 H 96 Random Glucose 97 Calcium 9.0 05/26/18 05/26/18 22:33 17:29 Sodium Potassium Chloride Carbon Dioxide Anion Gap BUN Creatinine Estimated GFR POC Glucose 99 95 Random Glucose Calcium - Impressions ITS Impressions Head CT 05/22/18 15:14 CONCLUSION: 1. No acute intracranial abnormality. 2. Atrophy and chronic white matter changes are again noted. . Chest X-Ray 05/22/18 15:15 CONCLUSION: Hyperexpanded and scarred lungs similar to before. No acute infiltrate seen. Lumbar Spine CT 05/25/18 00:00 CONCLUSION: 1. Acute or subacute appearing mild superior endplate compression fracture of the L1 vertebra. No retropulsed fragments. No fracture-associated foraminal or spinal stenosis. 2. Multilevel degenerative changes as described. No other fractures are seen. No subluxations. Lumbar Spine MRI 05/26/18 15:04 CONCLUSION: 1. Mild acute compression fracture at T11. 2. Mild to moderate acute compression fracture at L1. 3. Mild broad-based disc bulge at L3-4 causes mild canal stenosis. 4. Mild broad-based disc bulge at L1-2 and L4-5 levels without canal stenosis. Discharge Plan - Discharge Disposition Patient Disposition: Disch /Home Health Service - Discharge Condition Condition: Fair - Discharge Order Discharge Orders: Discharge Order (Routine); Ordered 05/27/18 Ordered By: Stephanie Shields - Discharge Details Anticipated Discharge Date: 05/27/18 Discharge Comment: Discharge pending Neurosurgery [facility] and [facility] set up by - Physicians Team Primary Care Provider: Winnie Moulton Attending Provider: Kristel Saenz Other Providers: Christina Vieira MD ; Po Rojo MD ; Je Glover MD
--- NOTE | 2018-05-27 16:18 | P.PNNS ---
Subjective Interval history: sitting up in chair, states back pain is ok Physical Exam Vital signs: Vital Signs 05/26/18 20:00 05/26/18 22:49 05/27/18 00:00 Temperature 98.1 F 97.6 F Pulse Rate 57 L 63 67 Respiratory Rate 18 18 Blood Pressure 176/89 H 176/88 H 159/84 H Pulse Oximetry 95 95 05/27/18 04:00 05/27/18 08:00 05/27/18 12:00 Temperature 97.4 F L 97.6 F 97.5 F L Pulse Rate 72 62 65 Respiratory Rate 18 14 16 Blood Pressure 151/90 H 147/80 H 141/85 H Pulse Oximetry 98 96 98 Intake & Output 05/26/18 05/27/18 05/27/18 18:59 06:59 18:59 Intake Total 480 / 480 Balance 480 / 480 Intake: Oral 480 / 480 Other: # Voids 4 2 Date of Last Bowel Movement 05/24/18 05/24/18 Narrative: GENERAL: Sitting up in chair SKIN: Warm and dry. HEAD: Atraumatic. Normocephalic. EYES: Pupils equal and round. No scleral icterus. No injection or drainage. ENT: No nasal bleeding or discharge. Mucous membranes pink and moist. NECK: Trachea midline. No JVD. CARDIOVASCULAR: Regular rate and rhythm. RESPIRATORY: No accessory muscle use. Clear to auscultation. Breath sounds equal bilaterally. GASTROINTESTINAL: Abdomen soft, non-tender, nondistended. MUSCULOSKELETAL: Extremities without clubbing, cyanosis, or edema. No obvious deformities. NEUROLOGICAL: Awake and alert. No obvious cranial nerve deficits. Motor grossly within normal limits. Five out of 5 muscle strength in the arms and legs. Assessment and Plan - Plan 82 year old male with acute T11 and L1 compression fractures MRI spine reviewed by Dr. Glover, offered option of nonsurgical mgt vs Kyphoplasty patient wishes to cont with nonsurgical tx TLSO brace when out of bed clear to dc from NRS standpoint f/u in office in 3 weeks
--- NOTE | 2018-05-28 10:59 | PQ ---
Physician Query Response Document PATIENT: Joaquin Keller : 1935 ADMIT DATE: 05/22/2018 6:03 PM DISCH DATE: 05/27/2018 4:09 PM RESPONDING PROVIDER #: [email or web address] QUERY TEXT: CDS Clarification Chronic respiratory failure in the setting of hypoxia without supplemental oxygen and CXR suggest emp hysema per data technical lead requiring continuous O2. Other explanation of clinical findings. Unable to determine (no explanation for clinical findings). The patient's Clinical Indicators include: The medical record reflects the following clinical findings, treatment, and risk factors. * Clinical Indicators: O2 sat 89% RA; wears oxygen at night and recently qualified for supplement oxy gen during the day; CXR shows lungs hyperexpanded and scarred * Risk Factors: CXR suggests emphysema per data technical lead; requires home O2; nursing reports pt is hypo xic without supplemental oxygenation * Treatment: continuous supplement oxygen Please clarify and document your clinical opinion in the progress notes and discharge summary includi ng the definitive and/or presumptive diagnosis (suspected or probable), related to the above clinical findings. Please include clinical findings supporting your diagnosis. Thank you, Norma Grady CDS: Norma Grady Patient Unit: [id number] Contact Number: [phone] Room: 1606 Query created by: Norma Grady on 05/26/2018 9:49 AM RESPONSE TEXT: Patient was hypoxic on admission. Patient O2 sat was normal thereafter. QUERY TEXT: CDS Clarification Metabolic encephalopathy in the setting of confusion with hyponatremia and hypoxia requiring treatmen t with NS infusion and supplemental oxygen Other explanation of clinical findings. Unable to determine (no explanation for clinical findings). The patient's Clinical Indicators include: The medical record reflects the following clinical findings, treatment, and risk factors. * Clinical Indicators: NA 123->125->128; O2 sat 89% RA * Risk Factors: confusion with Hyponatremia and nursing reports patient is hypoxic without supplement al oxygenation * Treatment: NS infusion and supplemental oxygen Please clarify and document your clinical opinion in the progress notes and discharge summary includi ng the definitive and/or presumptive diagnosis (suspected or probable), related to the above clinical findings. Please include clinical findings supporting your diagnosis. Thank you, Norma Grady CDS: Norma Grady Patient Unit: [id number] Contact Number: [phone] Room: 1606 Query created by: Norma Grady on 05/26/2018 9:59 AM RESPONSE TEXT: Patient with acute metabolic encephalopathy 2/2 hyponatremia, treated with NS IVF and also NaCl suppl ement. Patient has a documented O2 sat of 89 on admission however otherwise patient O2 sat on room air is mi d 90s., patient doesn't complain of sob. Electronically signed by: Luzmaria Jay MD 05/28/2018 12:19 AM
== END 2018-05-27 16:09 | disposition home health service (06) ==
LOC: NEPE 14:49 → NEDA 18:03 → N06 21:51 → N05 05-26 21:13
PROVIDERS: ADMIT Family Medicine; ATTEND Family Medicine

== ENCOUNTER 2018-06-10 09:58 | Observation (INO) ==
[2018-06-10] MEDS ORDERED: ceFAZolin 2 GM Premix Inj 2 GM/50 ML PIGGYBACK IV.SIG ONE (10:57)
[2018-06-10] MEDS ORDERED: Metoprolol Tartrate 25 MG Tablet PO ONE (11:15)
[2018-06-10] MEDS ORDERED: Chlorhexidine Gluconate 2% 1 Pack (2 Cloths) TOPICAL ONE (11:15)
[2018-06-10] MEDS ORDERED: Sodium Chlor 0.9% Inj 500 ML IV.CONT ONE (11:15)
[2018-06-10 11:25] LABS: Activated Partial Thrombo Time 27.4 sec (23.4-31.7); INR 1.1 Ratio; Prothrombin Time 10.9 sec (9.8-11.6)
[2018-06-10] MEDS ORDERED: ceFAZolin 2 GM IV; once IV.SIG SCH (11:30)
[2018-06-10] MEDS ORDERED: Bupivacaine/Epinephrine PF Inj 0.5% 30 ML Vial ONE (11:57)
[2018-06-10] MEDS ORDERED: Morphine Sulfate Inj 2 MG/ML Vial IV.PUSH PRN (14:56)
[2018-06-10] MEDS ORDERED: Bisacodyl 10 MG Supp RECTAL PRN (14:56)
[2018-06-10] MEDS ORDERED: Dextrose 50% in Water 50 ML Vial IV.PUSH PRN (15:00)
[2018-06-10] MEDS ORDERED: fentaNYL Citrate Inj 100 MCG/2 ML Ampul ONE (15:20)
[2018-06-10] MEDS ORDERED: *morphine SULFATE 4 MG/ML PERIprocedure ONLY ONE (15:26)
--- NOTE | 2018-06-10 15:38 | P.OP ---
Preoperative Diagnosis: T11 and L1 compression fractures Postoperative Diagnosis: T12 and L2 compression fractures Date of procedure: 06/10/18 Procedure: T11 (12), L1 (2) kyphoplasty Anesthesia: CHERISEA Surgeon: Je Glover MD Gear Shaper Set Up Operator: AB Pathology: none sent Operation and Findings: INDICATIONS FOR THE PROCEDURE Mr Keller is a 82 year-old male who presented with intractable pain related to a compression fracture, which were read on the MRI as T11 and L1. He failed nonsurgical management and a kyphoplasty was indicated as the most appropriate form of treatment. The [id number] details of the procedure, indications, alternatives, risks and potential complications were fully discussed with the patient. The patient fully understood. All The questions were answered. No guarantees were given. The patient voiced requesting the procedure and provided informed consents. The patient was offered the alternative of delaying the procedure and continuing with nonsurgical management. DETAILS OF THE SURGICAL PROCEDURE The patient was brought to the operating room and after the induction of general anesthesia, endotracheal intubation was performed. A Rick catheter and bilateral MESHA hose and sequential compression devices were placed and kept throughout the procedure. The patient was positioned prone on the Homero table over gel rods. All pressure points were carefully padded with egg crate mattress. The eyes were tapped shut after ointment was applied by the anesthesiologist to prevent corneal abrasion. A Simran hugger was placed over the exposed lower body to maintain control of the core body temperature. The thoracic and lumbar region were prepped and draped in the usual sterile fashion. The C-arms were brought to the field and simultaneous AP and lateral x-rays were obtained. The levels were carefully counted and the pedicles were marked over the skin. Upon counting and confirmation with xrays, the fractures were clearly visible. The cephalic fracture had the last rib, and the adjacent vertebral bodies were not fractured. The procedure was performed in the compressed vertebral bodies An entry point was selected 1 centimeter superior and 1 centimeter lateral to the pedicle. Two small incisions were outlined on the skin and infiltrated with 1% lidocaine with epinephrine in 1:100,000 dilution. Initially, two small skin incisions were made with a #11 blade. Then, Jamshidi needles were carefully advanced to the entrance of the pedicle, and then into the vertebral body under continuous fluoroscopic guidance. K-wires were placed inside the vertebral body of and the needles were carefully removed. A drill was used to create a trough into the vertebral body to insert a cannula. Once the cannula was located through the pedicle, the drill was removed and bilateral balloons were inserted into the T11 (12) vertebral body. A careful expansion of the balloon under continuous fluoroscopic guidance and manometric evaluation allowed expansion of the vertebral body. Then, the procedure was repeated in the same fashion at the next symptomatic level. The skin incisions were made with a #11 blade. Then, Jamshidi needles were carefully advanced to the entrance of the pedicle, and then into the vertebral body under continuous fluoroscopic guidance. The needles were advanced. The K-wire was advanced inside the vertebral body of L1 (2) and the needles were carefully removed. A drill was used to create a trough into the vertebral body and to insert a cannula. Once the cannula was located through the pedicle, the drill was removed and bilateral balloons were inserted into the vertebral body for vertebral augmentation. A careful expansion of the balloon under continuous fluoroscopic guidance and manometric evaluation allowed expansion of the vertebral body. Then, the balloons were deflated and carefully removed and the voids created in the vertebral bodies were filled with bone cement. A very good expansion of the vertebral bodies was achieved without evidence of extravasation or cement or other complications. The cannulas were then removed. The incisions were closed using a single stitch at each incision. Dermabond was applied to the skin. At the end of the procedure, the sponge, needle, instrument counts correct. The estimated blood loss as minimal. No intraoperative complications occurred. The patient received prophylactic antibiotics. The patient was then extubated and transferred to the recovery room in stable condition.
[2018-06-10] MEDS ORDERED: *morphine SULFATE 10 MG/ML PERIprocedure ONLY ONE (15:40)
[2018-06-10] MEDS: Insulin NovoLOG Aspart Correctional Sugar Inj SQ SCH ×2 (17:21→23:18)
--- NOTE | 2018-06-10 18:10 | XR ---
EXAM DATE: 06/10/2018 6:05 PM EST AGE/SEX: 82 years / Male INDICATIONS: Kyphoplasty T11 & L1. CLINICAL DATA: This is the patient's subsequent encounter. Patient reports that signs and symptoms h ave been present for 2 weeks and indicates a pain score of Nonresponsive. MEDICAL/SURGICAL HISTORY: Non-responsive. Non-responsive. COMPARISON: POI, XR SPINE LUMBAR (MIN 4 VIEWS), 05/21/2018. . CONCLUSION: Fluoroscopic images of the spine demonstrate kyphoplasty cement at T11 and L1. Mild loss of height of T11. Electronically signed by: Guille Almaraz MD 06/10/2018 6:08 PM EST
[2018-06-10] MEDS: Senna/Docusate Sodium 8.6/50 MG Tablet PO SCH (20:26)
[2018-06-10] MEDS ORDERED: ALPRAZolam 0.5 MG Tablet PO SCH (21:00)
[2018-06-10] MEDS: ceFAZolin 2 GM Premix Inj 2 GM/50 ML PIGGYBACK IV.SIG SCH (22:29)
[2018-06-11] MEDS: ceFAZolin 2 GM Premix Inj 2 GM/50 ML PIGGYBACK IV.SIG SCH ×2 (06:20→15:41)
[2018-06-11] MEDS: Insulin NovoLOG Aspart Correctional Sugar Inj SQ SCH ×2 (06:55→15:41)
[2018-06-11] MEDS ORDERED: MIRABEGRON 25 MG PO SCH (09:00)
[2018-06-11] MEDS: Senna/Docusate Sodium 8.6/50 MG Tablet PO SCH (09:25)
[2018-06-11 12:18] VITALS: BP 124/77; PULSE 67; RESP 17; TEMP 97.6; O2SAT 92
--- NOTE | 2018-06-11 16:48 | P.DS ---
Date of admission: 06/10/18 15:46 Primary care physician: Winnie Moulton MD Brief History from admission: Mr Keller is a 82 year-old male who presented with intractable pain related to a compression fracture, which were read on the MRI as T11 and L1. He failed nonsurgical management and a kyphoplasty was indicated as the most appropriate form of treatment. DS: Summary Hospital Course: Mr. Keller underwent T11 (12), L1 (2) kyphoplasty for T12 and L2 compression fractures on 06/10/18. His surgery went well without complications. He is discharged home in stable conditions. - Time Spent with Patient Total time spent providing and/or coordinating discharge services: Less than 30 minutes - Quality: VTE Deep Vein Thrombosis/Pulmonary Embolism Present on Admission: No Exam Vital signs: Vital Signs 06/10/18 17:50 06/10/18 19:59 06/10/18 21:19 Temperature 97.7 F 97.1 F L Pulse Rate 74 91 H Respiratory Rate 18 19 17 Blood Pressure 167/89 H 124/68 Pulse Oximetry 92 L 95 06/10/18 23:47 06/11/18 02:06 06/11/18 04:45 Temperature 97.5 F L 97.5 F L Pulse Rate 63 85 Respiratory Rate 17 17 17 Blood Pressure 134/76 124/68 Pulse Oximetry 94 L 94 L 06/11/18 06:56 06/11/18 08:00 06/11/18 09:15 Temperature 97.3 F L Pulse Rate 65 Respiratory Rate 17 16 Blood Pressure 131/68 Pulse Oximetry 91 L 95 06/11/18 12:00 Temperature 97.6 F Pulse Rate 67 Respiratory Rate 17 Blood Pressure 124/77 Pulse Oximetry 92 L Intake & Output 06/10/18 06/11/18 06/11/18 18:59 06:59 18:59 Intake Total 1000 / 1000 1180 / 1180 660 / 660 Output Total 4 / 4 Balance 1000 / 1000 1176 / 1176 660 / 660 Weight 72.9 kg 74.4 kg Intake: IV 100 / 100 Ancef 2 GM Premix Inj 2 gm In 100 / 100 50 ml @ 100 mls/hr IV.SIG Q8H CHELE Rx#:[id number] Oral 1080 / 1079 660 / 660 Anesthesia Amount 1000 / 1000 Output: Urine 4 / 4 Other: # Voids 3 Date of Last Bowel Movement 06/10/18 06/10/18 # Bowel Movements 0 Weight On Admission 73.6 kg Results Procedures completed during hospitalization: T11 (12), L1 (2) kyphoplasty Labs on day of discharge: Labs from last 24 hours 06/11/18 06/11/18 06/10/18 12:01 06:22 22:30 POC Glucose 124 H 132 H 202 H 06/10/18 17:07 POC Glucose 121 H - Impressions ITS Impressions Thoracolumbar Spine 06/10/18 00:00 CONCLUSION: Fluoroscopic images of the spine demonstrate kyphoplasty cement at T11 and L1. Mild loss of height of T11. Discharge Plan - Discharge Disposition Patient Disposition: Discharge Home - Discharge Condition Condition: Good - Discharge Order Discharge Orders: Discharge Order (Routine); Ordered 06/11/18 Ordered By: Je Glover - Physicians Team Primary Care Provider: Winnie Moulton Attending Provider: Je Glover - Rxs /Orders / Referrals /Forms Prescriptions: Continue alprazolam 0.5 mg Tablet 0.5 mg PO HS hydrocodone-acetaminophen 5-325 mg Tablet 1 tab PO Q6H PRN (Reason: severe pain >6) Qty: 12 RF: 0 metformin 500 mg Tablet 500 mg PO DAILY mirabegron [Myrbetriq] 25 mg Tablet Extended Release 24 Hr 25 mg PO DAILY Ambulatory Orders / Order Sets / DME: Walker With Front Wheels (1 each) (Routine) Location: Determined by Patient Ordered By: Sybil Franks Referrals: Je Glover MD [NEUROSURGERY] - See Instructions ( Please call the physician's office to book the appointment to be seen within 1-2 weeks. ) Winnie Moulton MD [Primary Care Provider] - See Instructions - Discharge Instructions Patient Printed Instructions: Hydrocodone/Acetaminophen (By mouth), How to Choose and Use a Walker (GEN), Vertebroplasty (DC), Fall Prevention (ED), Lumbar Brace (DC) Additional Instructions: Follow up with Dr. Glover in 1 week No prescriptions given at time of discharge Wear brace when out of bed
== END 2018-06-11 15:06 | disposition home or self-care (01) ==
LOC: HSDC 09:58 → HSDI 09:58 → N06 16:59
PROVIDERS: ADMIT Neurological Surgery; ATTEND Neurological Surgery

== ENCOUNTER 2018-07-03 14:16 | Observation (INO) ==
[2018-07-03] MEDS ORDERED: Sod Chloride 0.9% Inj 1,000 ML IV.SIG ONE (14:57)
--- NOTE | 2018-07-03 15:04 | ED ---
HPI General Chief complaint: Dizziness Stated complaint: BP Complaint/Doctor Sent Time Seen by Provider: 07/03/18 14:57 History of Present Illness HPI narrative: This is an 82-year-old male with history of diabetes, remote history of prostate cancer, he is on 2-3 L of oxygen at home according to his , history of sleep apnea and mild emphysema, presents for evaluation. The patient underwent kyphoplasty on June [address] Glover. For the past 2 weeks he has been having decreased appetite, generalized fatigue, weakness, approximately 4 episodes of watery stool a day. He was seen today in Dr. Glover' s office and his blood pressure was noted to be low and he was sent here for further evaluation. He is denying any headache, chest pain, shortness of breath , he has had some nausea and one episode of emesis 3 days ago but none since,, he is denying any abdominal pain. Related Data Home Medications Medication Instructions Recorded Confirmed alprazolam 0.5 mg PO HS 05/22/18 07/03/18 metformin 500 mg PO DAILY 05/22/18 07/03/18 mirabegron [Myrbetriq] 25 mg PO DAILY 05/22/18 07/03/18 Previous Rx's Medication Instructions Recorded hydrocodone-acetaminophen 1 tab PO Q6H PRN #12 tab 05/27/18 Allergies Allergy/AdvReac Type Severity Reaction Status Date / Time lisinopril AdvReac Severe swelling Verified 07/03/18 14:56 to mouth Review of Systems ROS: all other systems reviewed are negative PMFSH Social History Social History Substance History: No History of Abuse Second Hand Smoke Exposure: No Smoking Status: Former smoker How Often Do You Have a Drink Containing Alcohol: 2 to 3 times a week Recent Travel in [facility] within the Last 8 Weeks: No Recent Out of Country Travel within the Last 8 Weeks: No Immunization History Tetanus Immunization: <5 Years Exam Narrative Exam Narrative: GENERAL: Well-developed well-nourished male in no acute distress hypotensive upon arrival. SKIN: Warm and dry. HEAD: Atraumatic. Normocephalic. EYES: Pupils equal and round. No scleral icterus. No injection or drainage. ENT: No nasal bleeding or discharge. Mucous membranes pink and moist. NECK: Trachea midline. No JVD. CARDIOVASCULAR: Regular rate and rhythm. No murmur appreciated. RESPIRATORY: No accessory muscle use. Clear to auscultation. Breath sounds equal bilaterally. GASTROINTESTINAL: Abdomen soft, non-tender, nondistended. Hepatic and splenic margins not palpable. MUSCULOSKELETAL: No obvious deformities. No clubbing. No cyanosis. No edema. NEUROLOGICAL: Awake and alert. No obvious cranial nerve deficits. Motor grossly within normal limits. Normal speech. Course Initial Documented Vital Signs Temperature 98.4 F 07/03/18 14:38 Pulse Rate 83 07/03/18 14:38 Respiratory Rate 20 07/03/18 14:38 Blood Pressure 76/52 L 07/03/18 14:38 Pulse Oximetry 91 L 07/03/18 14:38 Last Documented Vital Signs Temperature 98.4 F 07/03/18 14:38 Pulse Rate 63 07/03/18 14:57 Respiratory Rate 21 07/03/18 14:57 Blood Pressure 103/70 07/03/18 14:57 Pulse Oximetry 96 07/03/18 14:57 Medical Decision Making GRISELDA Attestation GRISELDA supervised visit: Yes Attestation: I, Dr. Kramer, have reviewed the advance practice practitioner's documentation and am in agreement, met with the patient face to face, made the diagnosis, and the medical decision making was done by me. *My assessment and Findings: This patient presents with weakness and fatigue for the past couple of weeks. It all started following a kyphoplasty surgery. The patient tells me that he has had a poor appetite and has not been eating or drinking very much. He believes that his symptoms are secondary to poor intake. He also reports that he has not been having normal bowel movements. He reports the urge to have a bowel movement but states that he only passes a small amount of liquid stool when he goes to the bathroom. He has been taking some pain medicine since the surgery but he states that he has taken very few pain pills. On exam, his abdomen is soft and nontender. He is neurologically intact. He is awake, alert and fully oriented. Blood pressure is low at 94/62. The patient is receiving IV fluids. Workup is pending. Please see López Peña PA-C's note for a more detailed H&P, final diagnosis and disposition MDM Narrative Medical decision making narrative: The patient was placed on ECG monitoring pulse oximetry. IV established, lab work obtained, he was given 1 L normal saline bolus. Chest x-ray was obtained. Lab work demonstrates an acute kidney injury. Upon reexamination his blood pressure has improved somewhat but he still becomes hypotensive as well as lightheaded when he stands. Therefore he will be admitted for further treatment and hydration. Discussed with Dr. Howell who is agreeable. Medical Screen Exam Complete: Yes Emergency Medical Condition: Yes Differential Diagnosis Differential Diagnosis: Dehydration, electrolyte abnormality, near syncope, enteritis, orthostatic hypotension Lab Data Result diagrams: 07/03/18 15:06 07/03/18 15:06 Lab Results 07/03/18 07/03/18 07/03/18 Range/Units 15:06 15:06 15:06 WBC 5.5 (4.0-11.0) th/mm3 RBC 4.51 (4.50-5.90) mil/mm3 Hgb 15.7 (13.0-17.0) gm/dL Hct 44.2 (39.0-51.0) % MCV 98.1 (80.0-100.0) fL MCH 34.9 H (27.0-34.0) pg MCHC 35.5 (32.0-36.0) % RDW 13.3 (11.6-17.2) % Plt Count 192 (150-450) th/mm3 MPV 9.7 (7.0-11.0) fL Neut % (Auto) 47.1 (16.0-70.0) % Lymph % (Auto) 35.5 (9.0-44.0) % [place] % (Auto) 11.0 H (0.0-8.0) % Eos % (Auto) 5.8 H (0.0-4.0) % Baso % (Auto) 0.6 (0.0-2.0) % Neut # (Auto) 2.6 (1.8-7.7) th/mm3 Lymph # (Auto) 1.9 (1.0-4.8) th/mm3 [place] # (Auto) 0.6 (0.0-0.9) th/mm3 Eos # (Auto) 0.3 (0.0-0.4) th/mm3 Baso # (Auto) 0.0 (0.0-0.2) th/mm3 WBC Differential . Differential Comment Auto diff final PT (9.8-11.6) sec INR Ratio APTT (23.4-31.7) sec Sodium 132 L (136-145) meq/L Potassium 4.9 (3.5-5.1) meq/L Chloride 96 L (98-107) meq/L Carbon Dioxide 23.4 (21.0-32.0) meq/L Anion Gap 13 (5-15) meq/L BUN 23 H (7-18) mg/dL Creatinine 1.60 H (0.60-1.30) mg/dL Estimated GFR 42 L (>89) mL/min Random Glucose 148 H (74-106) mg/dL Calcium 9.3 (8.5-10.1) mg/dL Magnesium 1.5 (1.5-2.5) mg/dL Total Bilirubin 0.6 (0.2-1.0) mg/dL AST 33 (15-37) U/L ALT 19 (12-78) U/L Alkaline Phosphatase 68 (45-117) U/L Total Creatine Kinase 68 (39-308) U/L Troponin I Less than 0.02 L (0.02-0.05) ng/mL Total Protein 7.6 (6.4-8.2) g/dL Albumin 3.6 (3.4-5.0) g/dL 07/03/18 Range/Units 15:47 WBC (4.0-11.0) th/mm3 RBC (4.50-5.90) mil/mm3 Hgb (13.0-17.0) gm/dL Hct (39.0-51.0) % MCV (80.0-100.0) fL MCH (27.0-34.0) pg MCHC (32.0-36.0) % RDW (11.6-17.2) % Plt Count (150-450) th/mm3 MPV (7.0-11.0) fL Neut % (Auto) (16.0-70.0) % Lymph % (Auto) (9.0-44.0) % [place] % (Auto) (0.0-8.0) % Eos % (Auto) (0.0-4.0) % Baso % (Auto) (0.0-2.0) % Neut # (Auto) (1.8-7.7) th/mm3 Lymph # (Auto) (1.0-4.8) th/mm3 [place] # (Auto) (0.0-0.9) th/mm3 Eos # (Auto) (0.0-0.4) th/mm3 Baso # (Auto) (0.0-0.2) th/mm3 WBC Differential Differential Comment PT 11.9 H (9.8-11.6) sec INR 1.2 Ratio APTT 32.2 H (23.4-31.7) sec Sodium (136-145) meq/L Potassium (3.5-5.1) meq/L Chloride (98-107) meq/L Carbon Dioxide (21.0-32.0) meq/L Anion Gap (5-15) meq/L BUN (7-18) mg/dL Creatinine (0.60-1.30) mg/dL Estimated GFR (>89) mL/min Random Glucose (74-106) mg/dL Calcium (8.5-10.1) mg/dL Magnesium (1.5-2.5) mg/dL Total Bilirubin (0.2-1.0) mg/dL AST (15-37) U/L ALT (12-78) U/L Alkaline Phosphatase (45-117) U/L Total Creatine Kinase (39-308) U/L Troponin I (0.02-0.05) ng/mL Total Protein (6.4-8.2) g/dL Albumin (3.4-5.0) g/dL Imaging Data Radiologist's impression: Chest X-Ray 07/03/18 14:57 CONCLUSION: No acute intrathoracic disease. Stable examination. Abdomen X-Ray 07/03/18 15:16 CONCLUSION: No evidence of significant stool retention or obstruction. Prostate seeds are noted in place. ECG Data EKG Prior to Arrival: No Attestation: I personally reviewed and interpreted this ECG as follows: (NSR. rate 76. T-wave inversion V1 and V2. 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 no acute changes.) Discharge Plan Discharge Disposition Patient Disposition: ED Admit(ED Internal Use Only) Discharge Condition Condition: Stable Discharge Order Discharge Orders: ED Use Only Admit Order (Routine); Ordered 01/03/19 Ordered By: López Peña Discharge Details Diagnosis: JHON (acute kidney injury), Orthostatic hypotension, Dehydration Physicians Team ED Provider: Mae Kramer ED Midlevel Provider: López Peña Primary Care Provider: UNKNOWN, Attending Provider: Jeff Howell Status ED Status: Admitted Patient
[2018-07-03 15:17] LABS: Baso % (Auto) 0.6 % (0.0-2.0); Eos # (Auto) 0.3 th/mm3 (0.0-0.4); Eos % (Auto) 5.8 % (0.0-4.0); Hematocrit 44.2 % (39.0-51.0); Hemoglobin 15.7 gm/dL (13.0-17.0); Lymph # (Auto) 1.9 th/mm3 (1.0-4.8); Lymph % (Auto) 35.5 % (9.0-44.0); Mean Corpuscular HGB Conc 35.5 % (32.0-36.0); Mean Corpuscular Hemoglobin 34.9 pg (27.0-34.0); Mean Corpuscular Volume 98.1 fL (80.0-100.0); Mean Platelet Volume 9.7 fL (7.0-11.0); Mono # (Auto) 0.6 th/mm3 (0.0-0.9); Neut # (Auto) 2.6 th/mm3 (1.8-7.7); Neut % (Auto) 47.1 % (16.0-70.0); Platelet Count 192 th/mm3 (150-450); Red Blood Count 4.51 mil/mm3 (4.50-5.90); Red Cell Distribution Width 13.3 % (11.6-17.2); White Blood Count 5.5 th/mm3 (4.0-11.0)
[2018-07-03 15:37] LABS: Alkaline Phosphatase 68 U/L (45-117); Total Protein 7.6 g/dL (6.4-8.2)
[2018-07-03 15:40] LABS: Alanine Aminotransferase 19 U/L (12-78); Albumin 3.6 g/dL (3.4-5.0); Anion Gap 13 meq/L (5-15); Blood Urea Nitrogen 23 mg/dL (7-18); Calcium 9.3 mg/dL (8.5-10.1); Carbon Dioxide 23.4 meq/L (21.0-32.0); Chloride 96 meq/L (98-107); Glomerular Filtration Rate 42 mL/min (>89); Glucose,Random 148 mg/dL (74-106); Sodium 132 meq/L (136-145)
[2018-07-03 15:42] LABS: Aspartate Aminotransferase 33 U/L (15-37); Magnesium 1.5 mg/dL (1.5-2.5); Potassium 4.9 meq/L (3.5-5.1)
--- NOTE | 2018-07-03 16:02 | XR ---
EXAM DATE: 07/03/2018 3:56 PM EST AGE/SEX: 82 years / Male INDICATIONS: Less frequent bowel movements. CLINICAL DATA: This is the patient's initial encounter. Patient reports that signs and symptoms have been present for 1 week and indicates a pain score of 0/10. MEDICAL/SURGICAL HISTORY: Carcinoma, prostatic. diabetes Cholecystectomy. 2 colon surgeries, r ecent kyphoplasty [place] [facility] [place] . FINDINGS: Supine and upright views of the abdomen were performed. The abdominal bowel gas pattern is normal. No air-fluid levels are seen. No abnormal masses, calcifications, or organomegaly is seen. The visualiz ed lower lungs are clear. No evidence of free intraperitoneal gas. The osseous structures are unremar kable. CONCLUSION: No evidence of significant stool retention or obstruction. Prostate seeds are noted in place. Electronically signed by: Doug Haynes MD Board Certified Radiologist 07/03/2018 4:01 PM EST
--- NOTE | 2018-07-03 16:06 | XR ---
EXAM DATE: 07/03/2018 3:53 PM EST AGE/SEX: 82 years / Male INDICATIONS: Low blood pressure, sent by the dr. CLINICAL DATA: This is the patient's initial encounter. Patient reports that signs and symptoms have been present for 2 days and indicates a pain score of 0/10. MEDICAL/SURGICAL HISTORY: Carcinoma, prostatic. diabetes, slight emphysema, recently on O2 . 2 colon surgeries, recent kyphoplasty [place] [facility] [place]. . FINDINGS: A single AP view of the chest demonstrates the lungs to be symmetrically aerated without evidence of mass, infiltrate or effusion. Stable mild pleural thickening in the left costophrenic angle. The card iomediastinal contours are unremarkable. Osseous structures are intact. No significant changes comp ared to the prior examination. CONCLUSION: No acute intrathoracic disease. Stable examination. Electronically signed by: Vinicio Muñoz MD Board Certified Radiologist 07/03/2018 4:04 PM EST
[2018-07-03 16:08] LABS: Activated Partial Thrombo Time 32.2 sec (23.4-31.7); INR 1.2 Ratio; Prothrombin Time 11.9 sec (9.8-11.6)
[2018-07-03] MEDS ORDERED: Bisacodyl 10 MG Supp RECTAL PRN (17:06)
[2018-07-03] MEDS ORDERED: Acetaminophen 325 MG Tablet PO PRN (17:06)
[2018-07-03] MEDS: Sod Chloride 0.9% Inj 1,000 ML IV.CONT SCH ×2 (18:18→23:45)
[2018-07-03 23:59] VITALS: RESP 20
[2018-07-04 00:04] VITALS: BP 109/61; PULSE 72; TEMP 98; O2SAT 96
--- NOTE | 2018-07-04 01:02 | P.HPIM ---
History of Present Illness Primary Care Physician: UNKNOWN [facility] Social History Social History Substance History: No History of Abuse Second Hand Smoke Exposure: No Smoking Status: Former smoker How Often Do You Have a Drink Containing Alcohol: 2 to 3 times a week Recent Travel in [facility] within the Last 8 Weeks: No Recent Out of Country Travel within the Last 8 Weeks: No Immunization History Tetanus Immunization: <5 Years Medications and Allergies Allergies Allergy/AdvReac Type Severity Reaction Status Date / Time lisinopril AdvReac Severe swelling Verified 07/03/18 14:56 to mouth Home Medications Medication Instructions Recorded Confirmed Type alprazolam 0.5 mg PO HS 05/22/18 07/03/18 History metformin 500 mg PO DAILY 05/22/18 07/03/18 History mirabegron [Myrbetriq] 25 mg PO DAILY 05/22/18 07/03/18 History Active Medications: Active Medications Acetaminophen (Tylenol) 650 mg PO Q4H PRN PRN Reason: Headache, fever, pain 1-4 Al Hydroxide/Mg Hydroxide (Milk Of Magnesia Liq) 30 ml PO Q12H PRN PRN Reason: Mild Constipation Bisacodyl (Dulcolax Supp) 10 mg RECTAL DAILY PRN PRN Reason: SEVERE CONSITIPATION Sodium Chloride (Ns Inj) 1,000 mls @ 150 mls/hr IV.CONT .Q6H40M [facility] Last Admin: 07/03/18 23:45 Dose: 150 mls/hr Lactulose (Lactulose Liq) 30 ml PO DAILY PRN PRN Reason: SEVERE CONSITIPATION Ondansetron HCl (Zofran Inj) 4 mg IV.PUSH Q6H PRN PRN Reason: NAUSEA OR VOMITING Sennosides (Senokot) 17.2 mg PO Q12H PRN PRN Reason: Moderate Constipation Sodium Chloride (Ns Flush) 2 ml IV.FLUSH BID [facility] Last Admin: 07/03/18 21:13 Dose: Not Given Sodium Chloride (Ns Flush) 2 ml IV.FLUSH PRN PRN PRN Reason: FLUSH AFTER USING IV ACCESS Physical Exam Vital signs: Last Vital Signs Temp 98.0 F 07/04/18 00:03 Pulse 72 07/04/18 00:03 Resp 20 07/04/18 00:03 BP 109/61 07/04/18 00:03 Pulse Ox 96 07/04/18 00:03 Intake & Output 07/01/18 07/02/18 07/03/18 07/04/18 06:59 06:59 06:59 06:59 Intake Total 1999 Balance 1999 Weight 72.575 kg Results Labs CBC & Chem 7: 07/03/18 15:06 07/03/18 15:06 Imaging Impressions Chest X-Ray 07/03/18 14:57 CONCLUSION: No acute intrathoracic disease. Stable examination. Abdomen X-Ray 07/03/18 15:16 CONCLUSION: No evidence of significant stool retention or obstruction. Prostate seeds are noted in place. Caprini VTE Risk Assessment Caprini Risk Assessment Model: Point Value = 1 Point Value = 2 Point Value = 3 Point Value = 5 Age 41-60 Minor surgery BMI > 25 kg/m2 Swollen legs Varicose veins or History of unexplained or recurrent spontaneous Oral contraceptives or hormone replacement Sepsis (< 1 month) Serious lung disease, including pneumonia (< 1 month) Abnormal pulmonary function Acute myocardial infarction Congestive heart failure (< 1 month) History of inflammatory bowel disease Medical patient at bed rest Age 61-74 Arthroscopic surgery Major open surgery (> 45 min) Laparoscopic surgery (> 45 min) Malignancy Confined to bed (> 72 hours) Immobilizing plaster cast Central venous access Age >= 75 History of VTE Family history of VTE Factor V Leiden Prothrombin [id number] Lupus anticoagulant Anticardiolipin antibodies Elevated serum homocysteine Heparin-induced thrombocytopenia Other congenital or acquired thrombophilia Stroke (< 1 month) Elective arthroplasty Hip, pelvis, or leg fracture Acute spinal cord injury (< 1 month) Prophylaxis Regimen: Total Risk Factor Score Risk Level Prophylaxis Regimen 0-1 Low Early ambulation 2 Moderate Order ONE of the following: *Sequential Compression Device (SCD) *Heparin 5000 units SQ BID 3-4 Higher Order ONE of the following medications: *Heparin 5000 units SQ TID *Enoxaparin/Lovenox 40 mg SQ daily (WT < 150 kg, CrCl > 30 mL/min) *Enoxaparin/Lovenox 30 mg SQ daily (WT < 150 kg, CrCl > 10-29 mL/min) *Enoxaparin/Lovenox 30 mg SQ BID (WT < 150 kg, CrCl > 30 mL/min) AND/OR *Sequential Compression Device (SCD) 5 or more Highest Order ONE of the following medications: *Heparin 5000 units SQ TID (Preferred with Epidurals) *Enoxaparin/Lovenox 40 mg SQ daily (WT < 150 kg, CrCl > 30 mL/min) *Enoxaparin/Lovenox 30 mg SQ daily (WT < 150 kg, CrCl > 10-29 mL/min) *Enoxaparin/Lovenox 30 mg SQ BID (WT < 150 kg, CrCl > 30 mL/min) AND *Sequential Compression Device (SCD)
[2018-07-04] MEDS ORDERED: MIRABEGRON PO SCH (09:00)
--- NOTE | 2018-07-04 18:13 | ECG ---
Date Performed: 07/03/2018 Time Performed: 15:04:00 PTAGE: 82 years EKG: Sinus rhythm RIGHT VENTRICULAR HYPERTROPHY POSSIBLE ANTERIOR MYOCARDIAL INFARCTION Compared to previous tracing, previously seen ST changes are slightly less prominent ABNORMAL ECG PREVIOUS TRACING : 05/22/2018 15.20 DOCTOR: Mat Roa Interpretating Date/Time 07/04/2018 18:12:11
[2018-07-04] MEDS ORDERED: ALPRAZolam 0.5 MG Tablet PO SCH (21:00)
== END 2018-07-04 02:08 | disposition home or self-care (01) ==
LOC: NEPE 14:16 → INTOOBSV 17:05 → NEDA 17:05 → NEPFCDU 18:32
PROVIDERS: ADMIT Hospitalist; ATTEND Hospitalist
CPT/HCPCS: 71010; 71045; 74019; 80053; 82550; 83735; 84484; 85025; 85610; 85730; 90761; 90774; 90784; 93005; 96361; 96374; 99285; C8952; G0378; J2405; J7030